=== PATIENT | female | born 1985 | race Hispanic/Latino ===

== ENCOUNTER 2017-11-16 18:29 | Emergency (ER) | payer BC, OTHER ==
--- NOTE | 2017-11-16 20:35 | RAD ---
EXAM: CHEST ONE VIEW 11/16/17 HISTORY: Chest pain. Fever, cough and congestion. COMPARISON: 09/21/16. FINDINGS: One view chest: Normal cardiac silhouette. Pulmonary vessels and hilum are normal. Costophrenic angles are clear. No mass. No consolidation. No pneumothorax or osseous abnormalities. IMPRESSION: No acute cardiopulmonary process. POS: H
[2017-11-16] MEDS ORDERED: Dexamethasone 10 MG/ML VIAL ONE (21:47)
[2017-11-16] MEDS ORDERED: Albuterol Sulfate 2.5 mg/0.5 ml Neb ONE (21:59)
--- NOTE | 2017-12-16 15:05 | EKG ---
Test Reason : CHEST PAIN/COUGH Blood Pressure : / mmHG Vent. Rate : 081 BPM Atrial Rate : 081 BPM P-R Int : 130 ms QRS Dur : 078 ms QT Int : 368 ms P-R-T Axes : -13 042 023 degrees QTc Int : 427 ms Normal sinus rhythm Normal ECG No ST elevation/LA Confirmed by SANAZ PETERSON MD ([id number]), supervising editor news reel TOMMY ASHTON ([id number]) on 12/16/2017 3:05:25 PM Referred By: Confirmed By:SANAZ PETERSON MD
== END 2017-11-16 22:40 | disposition home or self-care (01) ==
LOC: ERS 18:29
DX: J11.1 Influenza due to unidentified influenza virus with other respiratory manifestations (principal); J45.901 Unspecified asthma with (acute) exacerbation; E11.9 Type 2 diabetes mellitus without complications; E78.5 Hyperlipidemia, unspecified
CPT/HCPCS: 71045; 93005; 94640; 96372; J1100; J7611; J7620

== ENCOUNTER 2018-01-05 20:07 | Emergency (ER) | payer BC ==
[2018-01-05] MEDS ORDERED: Ibuprofen 200 MG TAB ONE (21:30)
== END 2018-01-05 21:40 | disposition home or self-care (01) ==
LOC: ERS 20:07
DX: H66.92 Otitis media, unspecified, left ear (principal); J01.90 Acute sinusitis, unspecified; E11.9 Type 2 diabetes mellitus without complications; E78.5 Hyperlipidemia, unspecified; Z79.4 Long term (current) use of insulin; Z79.899 Other long term (current) drug therapy
CPT/HCPCS: 99282

== ENCOUNTER 2019-01-11 12:59 | Outpatient (CLI) | payer BC, OTHER | END 2019-01-11 13:00 | disposition home or self-care (01) | LOC: EKG 12:59 | PROVIDERS: ATTEND Obstetrics & Gynecology | DX: Z00.00 Encounter for general adult medical examination without abnormal findings (principal) | CPT/HCPCS: 93005; 93010 ==

== ENCOUNTER 2019-01-30 14:16 | Day surgery (SDC) | payer BC, OTHER ==
[2019-01-30 14:56] VITALS: BMI 37.2
[2019-01-30 15:09] LABS: #Eosinphils 0.1 thou/uL (0.0-0.7); #Lymphocytes 2.3 thou/uL (1.20-3.40); #Monocytes 0.6 thou/uL (0.11-0.59); #Neutrophils 5.3 thou/uL (1.40-6.50); %Basophils 0.2 % (0.0-1.0); %Eosinophils 1.8 % (0.0-10.0); %Monocytes 7.6 % (0.0-10.0); %Neutrophils 63.5 % (42.0-75.0); Hemoglobin 12.4 g/dL (12.0-16.0); Mean Corpuscular HGB CONC 35.6 g/dL (32.0-36.0); Mean Corpuscular Hemoglobin 33.9 pg (27.0-31.0); Mean Corpuscular Volume 95.1 fL (78.0-98.0); Mean Platelet Volume 7.1 fL (7.4-10.4); Platelet Count 155 thou/uL (130-400); RBC Distribution Width 11.9 % (11.5-14.5); Red Blood Cell (RBC) Count 3.67 mill/uL (4.20-5.40); White Blood Cell (WBC) Count 8.4 thou/uL (4.8-10.8)
[2019-01-30 15:12] LABS: Bilirubin Negative (Negative); Blood, Urine Trace (Negative); Clarity CLEAR (Clear); Glucose, Urine (Dipstick) 250 mg/dL (Negative); Leukocyte Negative (Negative); Nitrite Negative (Negative); Protein, Urine (Dipstick) Negative (Neg-Trace); Specific Gravity, Urine 1.016 (1.002-1.036)
[2019-01-30 15:13] LABS: Bacteria/HPF None Seen HPF (None Seen); Hyaline Casts/LPF 4-6 HYALINE CAST LPF (0-3 Hyaline); Pathc Cast-AUWi Flag 1.22 (0-2.49); Squamous Epithelial 0-3 HPF (0-3); WBC/HPF None Seen HPF (0-3)
[2019-01-30 15:31] LABS: ALT (SGPT) 9 U/L (8-55); AST (SGOT) 10 U/L (5-34); Albumin 3.2 g/dL (3.5-5.0); Alkaline Phosphatase 42 U/L (40-150); Anion Gap 11 mmol/L (10-20); BUN (Urea Nitrogen) 8 mg/dL (7.0-18.7); Bilirubin, Total 0.2 mg/dL (0.2-1.2); Calc. Creatinine Clearance 197 mL/min (70-130); Calcium 9.1 mg/dL (7.8-10.44); Carbon Dioxide 22 mmol/L (22-29); Chloride 105 mmol/L (98-107); Estimated GFR-MDRD Greater than 90; Globulin 3.3 g/dL (2.4-3.5); Glucose 161 mg/dL (70-105); Potassium 4.1 mmol/L (3.5-5.1); Protein, Total 6.5 g/dL (6.0-8.3); Sodium 134 mmol/L (136-145)
--- NOTE | 2019-01-30 23:08 | PRG ---
DATE OF SERVICE: 01/30/[address] Cecilio Reza. CHIEF COMPLAINT: Pelvic and back pain and tightness. HISTORY OF PRESENT ILLNESS: Patient is a 33-year-old G4, P3, female with an intrauterine at 24 weeks gestation and a past medical history significant for diabetes and asthma. Patient reports that she has been experiencing over this last week pain and tightness in her left lower quadrant and back. After some discussion, patient reports that these symptoms are sharp in her lower abdomen and are exacerbated with her work and activity. 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 Patient also reports that she has worsening symptoms when the baby is actively moving. Patient reports she has had some nausea with vomiting intermittently and reports she last throw up this morning. She reports dysuria with frequency. Also, reports a change in her discharge as being whitish and yellow with a slight change in smell. Patient has a history of constipation and headaches with this . She does report good movement. Patient reports that her diabetes is in better control now and admits that she had poorly-controlled diabetes early in this . Patient denies fever, hematochezia, hematuria, falls, or trauma. She denies fever. Reports fatigue. Denies vision changes, ear pain, palpitations, chest pain, leg swelling or leg pain, or coughing up blood. She does report some shortness of breath with this and uses her albuterol inhaler as needed. She denies hematuria or dyspareunia. Again, reports burning with urination and back pain. Patient does report some intolerance to cold. She denies any rashes or itching. PAST MEDICAL HISTORY: Type 2 diabetes, migraine, dyslipidemia, and asthma. PAST SURGICAL HISTORY: Cholecystectomy and three prior C-sections. MEDICATION: She is on Lantus 32 units twice a day and NovoLog 16 units before meals, albuterol p.r.n. ALLERGIES: SUMATRIPTAN AND FLUCONAZOLE. SOCIAL HISTORY: Denies drug, alcohol, or tobacco use and again works in senior care services at [employer]. OB LABS: Unavailable at the time of dictation. REVIEW OF SYSTEMS: Per HPI. PHYSICAL EXAMINATION: VITAL SIGNS: Blood pressure is 121/71, heart rate of 90, respiratory rate of 18, and temperature 98.2. GENERAL: She appears to be in no acute distress. She is alert, oriented, cooperative, and pleasant to interact with. HEAD: Normocephalic and atraumatic. LUNGS: Clear to auscultation bilaterally. HEART: Has regular rate and rhythm. ABDOMEN: Soft, but has tenderness along the left lateral side with deviation of the uterus to the right. She also has some tenderness with palpation suprapubically and infraumbilically. She also has paravertebral tenderness along the left side, really no CVA tenderness and has positive SI joint tenderness to palpation on the left side. CERVICAL EXAM: Cervix is closed. DIAGNOSTIC DATA: heart tracing shows the fetus baseline in the 140s with moderate long-term variability. LABORATORY DATA: White count 8.4, hemoglobin 12.4, hematocrit 34.9, and platelets of 155,000. Sodium 134, potassium 4.1, BUN of 8, creatinine of 0.6, glucose of 161, calcium of 9.1, AST of 10, and ALT of 9. Beta hydroxybutyrate 0.09. Urine is clear with a pH of 6, specific gravity 1.016, negative protein, positive for glucose, negative for ketones, trace for blood, and negative for leukocyte esterase, white blood cells, squamous cells, or bacteria. VP3 positive for Gardnerella, negative for Trichomonas or Bina. ASSESSMENT AND PLAN: Patient is a 33-year-old G4, P3 female with an intrauterine at 24 weeks, suffering from musculoskeletal pains and ligamentous pains likely associated with her work. Patient is working full-time in senior care services at [employer]. We did discuss the likely connection between her symptoms and her work. I have asked Ms. Jerome as to refrain from work for the next several days to give her chance of time to heal and to discuss with her employers about activities that part of her work that she may have more difficulty doing with her . Fetus is overall reassuring for gestational age. There is no evidence of diabetic ketoacidosis or urinary tract infection or pyelonephritis or labor. Patient does have a positive VP3 for bacterial vaginosis, which came back after she left. I have attempted to call the patient to communicate the results, but I have been unsuccessful. Prior to discharge, the patient was given instructions to call the Labor and Delivery in a couple hours from time of discharge for lab results. Job ID: [id number]
== END 2019-01-30 16:27 | disposition home or self-care (01) ==
LOC: L&D/OP 14:16
PROVIDERS: ATTEND Obstetrics & Gynecology
DX: O99.89 Other specified diseases and conditions complicating pregnancy, childbirth and the puerperium (principal); M79.18 Myalgia, other site; O24.112 Pre-existing type 2 diabetes mellitus, in pregnancy, second trimester; E11.9 Type 2 diabetes mellitus without complications; Z3A.24 24 weeks gestation of pregnancy; O99.512 Diseases of the respiratory system complicating pregnancy, second trimester; J45.909 Unspecified asthma, uncomplicated; G43.909 Migraine, unspecified, not intractable, without status migrainosus; E78.5 Hyperlipidemia, unspecified; O34.219 Maternal care for unspecified type scar from previous cesarean delivery; Z90.49 Acquired absence of other specified parts of digestive tract; Z88.8 Allergy status to other drugs, medicaments and biological substances; Z79.4 Long term (current) use of insulin; Z79.899 Other long term (current) drug therapy
CPT/HCPCS: 36415; 51701; 80053; 81001; 82010; 85025; 87480; 87510; 87660; 99284

== ENCOUNTER 2019-03-04 14:58 | Day surgery (SDC) | payer BC, OTHER ==
[2019-03-04 16:43] LABS: Bilirubin Negative (Negative); Blood, Urine Trace (Negative); Clarity CLEAR (Clear); Glucose, Urine (Dipstick) 250 mg/dL (Negative); Leukocyte Negative (Negative); Nitrite Negative (Negative); Protein, Urine (Dipstick) 30 mg/dL (Neg-Trace); Specific Gravity, Urine 1.038 (1.002-1.036); pH, Urine 5.5 (5.0-9.0)
[2019-03-04 16:45] LABS: Bacteria/HPF None Seen HPF (None Seen); Hyaline Casts/LPF 7-10 HYALINE CAST LPF (0-3 Hyaline); RBC/HPF 0-3 HPF (0-3); Squamous Epithelial 0-3 HPF (0-3); WBC/HPF 0-3 HPF (0-3)
[2019-03-04 16:51] LABS: Amphetamine Not Detected (NotDetected); Barbiturates Screen Not Detected (NotDetected); Benzodiazepine Screen Not Detected (NotDetected); Cocaine Metabolite Screen Not Detected (NotDetected); Medtox Control Line Valid? VALID (VALID); Medtox Reader # READER 1; Methadone Not Detected (NotDetected); Methamphetamine Not Detected (NotDetected); Opiate Screen Not Detected (NotDetected); Oxycodone Screen Not Detected (NotDetected); Phencyclidine (PCP) Not Detected (NotDetected); THC/Cannabinoid Screen Not Detected (NotDetected); Tricyclic Screen Not Detected (NotDetected)
[2019-03-04 16:52] LABS: Urine Culture Reflex No No
[2019-03-04 17:02] VITALS: BP 132/71; TEMP 98.8; BMI 32.3
[2019-03-04 17:25] LABS: Creatinine, Urine 191.6 mg/dL (47-110)
[2019-03-04 17:35] LABS: #Eosinphils 0.2 thou/uL (0.0-0.7); #Lymphocytes 1.9 thou/uL (1.20-3.40); #Monocytes 0.8 thou/uL (0.11-0.59); #Neutrophils 5.5 thou/uL (1.40-6.50); %Basophils 0.4 % (0.0-1.0); %Eosinophils 2.3 % (0.0-10.0); %Lymphocytes 22.7 % (21.0-51.0); %Monocytes 9.1 % (0.0-10.0); %Neutrophils 65.5 % (42.0-75.0); Hemoglobin 12.1 g/dL (12.0-16.0); Mean Corpuscular HGB CONC 35.7 g/dL (32.0-36.0); Mean Corpuscular Hemoglobin 34.4 pg (27.0-31.0); Mean Corpuscular Volume 96.4 fL (78.0-98.0); Mean Platelet Volume 7.5 fL (7.4-10.4); Platelet Count 137 thou/uL (130-400); RBC Distribution Width 11.8 % (11.5-14.5); White Blood Cell (WBC) Count 8.3 thou/uL (4.8-10.8)
[2019-03-04 17:59] LABS: ALT (SGPT) 7 U/L (8-55); AST (SGOT) 10 U/L (5-34); Alkaline Phosphatase 55 U/L (40-150); Anion Gap 11 mmol/L (10-20); BUN (Urea Nitrogen) 11 mg/dL (7.0-18.7); Bilirubin, Total 0.2 mg/dL (0.2-1.2); Calc. Creatinine Clearance 181 mL/min (70-130); Calcium 8.9 mg/dL (7.8-10.44); Carbon Dioxide 23 mmol/L (22-29); Chloride 107 mmol/L (98-107); Estimated GFR-MDRD Greater than 90; Globulin 3.3 g/dL (2.4-3.5); Glucose 123 mg/dL (70-105); Protein, Total 6.3 g/dL (6.0-8.3); Sodium 137 mmol/L (136-145)
--- NOTE | 2019-03-04 19:40 | PRG ---
DATE OF SERVICE: 03/04/2019 TIME OF SERVICE: 1820 hours. PRESENTING COMPLAINT: Headaches, 28 to 29 weeks' gestation with insulin-dependent diabetes HISTORY OF PRESENT ILLNESS: Ms. Jerome is well known to myself. She is a 33-year-old, 4, para 3, x3 at 28 to 29 weeks who had pre-existing diabetes prior to . She requires both oral medications and insulin and seeing Dr. Rachid Bahkta at [facility]. She presented to the office with some complaints of headache and had one 150/80 in the office. She was referred over for further evaluation. ORACLE SPECIALIST HISTORY: As noted. The patient does not desire risk reducing salpingectomy. The patient has a history of herpes, blood type A positive, antibody negative, Pap negative, rubella immune, VDRL nonreactive. Hepatitis B, GC, chlamydia negative. Hemoglobin A1c has been 6 to 7 range. The patient had mild proteinuria upon initial presentation in early . She had initial UA that was positive for alcohol. She had negative genetic testing. PAST MEDICAL HISTORY: Herpes, diabetes poorly controlled outside of . PAST SURGICAL HISTORY: Gallbladder, C-sections. ALLERGIES: DENIES. MEDICATIONS: 1. Albuterol. 2. Flovent. 3. Lantus. 4. Metformin. 5. NovoLog. 6. Protonix. 7. Valacyclovir. SOCIAL HISTORY: Denies tobacco, alcohol, or IV drug abuse, although the patient did have positive alcohol in urine in early . FAMILY HISTORY: Noncontributory. REVIEW OF SYSTEMS: Noncontributory. PHYSICAL EXAMINATION: GENERAL: female, resting comfortably. VITAL SIGNS: Initial blood pressure 130/82, serial blood pressures ranged between one-teens to 130 over 80 to 86 diastolic during hospital stay, temperature 98.4, respirations 18, pulse 95. HEENT: Within normal limits. LUNGS: Clear to auscultation bilaterally. HEART: Regular rate and rhythm. No CVA tenderness noted. ABDOMEN: Soft and nontender with a fundal height of 29 cm. FHTs 140s. Vulva without lesions. Vaginal exam deferred. EXTREMITIES: No clubbing, cyanosis, or edema. 1+ DTRs. Prolonged monitoring. NST was carried out which show reactive category 1 heart rate tracing without contractions without evidence of distress. LABORATORY DATA: Included a normal CBC and comprehensive metabolic panel with blood sugar of 127. Protein to creatinine ratio on spot was 0.4, however, the patient is noted to have pre-existing mild proteinuria prior to . A 24-hour urine was 254 mg in first trimester. IMPRESSION: No evidence of preeclampsia in a patient at high risk with insulin-dependent diabetes in pre-existing proteinuria on baby aspirin daily. PLAN: Discussed with the patient options. We will discharge patient home. She will check her blood pressure at home. Call for 150s/90s or greater. The patient will have office follow up with the patient tomorrow and repeat 24-hour urine. The patient is to keep scheduled followup with myself or [facility] with ER precautions. Job ID: [id number]
== END 2019-03-04 18:33 | disposition home health service (06) ==
LOC: L&D/OP 14:58
PROVIDERS: ATTEND Obstetrics & Gynecology
DX: O99.89 Other specified diseases and conditions complicating pregnancy, childbirth and the puerperium (principal); R51 Headache; O24.112 Pre-existing type 2 diabetes mellitus, in pregnancy, second trimester; E11.9 Type 2 diabetes mellitus without complications; Z79.4 Long term (current) use of insulin; Z79.899 Other long term (current) drug therapy
CPT/HCPCS: 36415; 36416; 80053; 80306; 81001; 82570; 84156; 85025; A4353

== ENCOUNTER 2019-03-12 10:32 | Day surgery (SDC) | payer BC, OTHER ==
[2019-03-12 11:26] VITALS: BMI 37.2
[2019-03-12 11:59] LABS: Hemoglobin 13.2 g/dL (12.0-16.0); Mean Corpuscular HGB CONC 34.5 g/dL (32.0-36.0); Mean Corpuscular Hemoglobin 32.9 pg (27.0-31.0); Mean Corpuscular Volume 95.4 fL (78.0-98.0); Mean Platelet Volume 7.7 fL (7.4-10.4); Platelet Count 177 thou/uL (130-400); RBC Distribution Width 11.7 % (11.5-14.5); Red Blood Cell (RBC) Count 4.02 mill/uL (4.20-5.40); White Blood Cell (WBC) Count 8.3 thou/uL (4.8-10.8)
[2019-03-12 12:01] LABS: Bilirubin Small (Negative); Blood, Urine Trace (Negative); Clarity CLEAR (Clear); Glucose, Urine (Dipstick) 100 mg/dL (Negative); Leukocyte Negative (Negative); Nitrite Negative (Negative); Protein, Urine (Dipstick) 30 mg/dL (Neg-Trace); Specific Gravity, Urine 1.025 (1.002-1.036)
[2019-03-12 12:12] LABS: Bacteria/HPF None Seen HPF (None Seen); Hyaline Casts/LPF 7-10 HYALINE CAST LPF (0-3 Hyaline); Pathc Cast-AUWi Flag 1.63 (0-2.49); WBC/HPF 0-3 HPF (0-3)
[2019-03-12 12:25] LABS: ALT (SGPT) 7 U/L (8-55); AST (SGOT) 8 U/L (5-34); Albumin 3.1 g/dL (3.5-5.0); Alkaline Phosphatase 60 U/L (40-150); Anion Gap 11 mmol/L (10-20); BUN (Urea Nitrogen) 9 mg/dL (7.0-18.7); Bilirubin, Total 0.3 mg/dL (0.2-1.2); Calc. Creatinine Clearance 204 mL/min (70-130); Calcium 8.8 mg/dL (7.8-10.44); Carbon Dioxide 23 mmol/L (22-29); Chloride 106 mmol/L (98-107); Estimated GFR-MDRD Greater than 90; Globulin 3.5 g/dL (2.4-3.5); Glucose 97 mg/dL (70-105); Potassium 4.3 mmol/L (3.5-5.1); Protein, Total 6.6 g/dL (6.0-8.3); Sodium 136 mmol/L (136-145)
[2019-03-12 12:26] LABS: RBC/HPF 0-3 HPF (0-3)
[2019-03-12 12:40] LABS: Creatinine, Urine 178.08 mg/dL (47-110)
[2019-03-12 14:21] LABS: Amphetamine Not Detected (NotDetected); Barbiturates Screen Not Detected (NotDetected); Benzodiazepine Screen Not Detected (NotDetected); Cocaine Metabolite Screen Not Detected (NotDetected); Medtox Reader # READER 4; Methadone Not Detected (NotDetected); Methamphetamine Not Detected (NotDetected); Opiate Screen Not Detected (NotDetected); Oxycodone Screen Not Detected (NotDetected); Phencyclidine (PCP) Not Detected (NotDetected); THC/Cannabinoid Screen Not Detected (NotDetected); Tricyclic Screen Not Detected (NotDetected)
[2019-03-12 14:22] LABS: Medtox Control Line Valid? VALID (VALID)
[2019-03-12 14:32] LABS: Reference Lab Name LABCORP
--- NOTE | 2019-03-13 01:55 | SS ---
DATE OF ADMISSION: 03/12/2019 DATE OF DISCHARGE: 03/12/2019 REGULAR PHYSICIAN: Cecilio Reza MD EVALUATING PHYSICIAN: Blade Latham MD CHIEF COMPLAINT: Elevated blood pressures with nausea at home. HISTORY OF PRESENT ILLNESS: Ms. Murdock is a 33-year-old, G4, P3, with an estimated date of confinement of 05/22/2019, who presents to Labor and Delivery complaining of elevated blood pressure at work. She states that it was 176/86. She also reports intermittent headache along with some nausea. Apparently, she has vomited once as well. She denies right upper quadrant pain. This patient is well known to Dr. Reza, and she has been followed for diabetes in his clinic. She had a 24-hour urine done on the , which returned showing 440 mg per 24 hours. PAST MEDICAL HISTORY: Includes herpes and diabetes mellitus. PAST SURGICAL HISTORY: Includes x3 and cholecystectomy. CURRENT MEDICATIONS: Include, 1. Albuterol. 2. Flovent. 3. Lantus insulin. 4. Metformin. 5. NovoLog. 6. Protonix. 7. Valacyclovir. ALLERGIES: SHE DENIES. SOCIAL HISTORY: She reportedly has had a positive ethanol testing early in . She denies drug use at present. FAMILY HISTORY: Unremarkable. REVIEW OF SYSTEMS: She denies decreased movement, vaginal bleeding, or leakage of fluid. PHYSICAL EXAMINATION: VITAL SIGNS: Initial blood pressure is 132/74. During our time of observation, her blood pressures have ranged 130s to 140s over 70s to 80s. GENERAL: She is in no acute distress. ABDOMEN: Soft, nontender, and gravid. PELVIS: Deferred. heart rate tracing is stable. There are no decelerations. No significant uterine contractions were seen. LABORATORY DATA: White count 8.3, hemoglobin and hematocrit are 13.2 and 38.3 respectively, and platelet count is 177,000. Total bilirubin 0.3. AST and ALT are 8 and 7 respectively. Urinalysis does show the presence of protein and urine protein to creatinine ratio returns at 0.303. ASSESSMENT: 1. 29 and 6/7th week intrauterine . 2. Diabetes mellitus. 3. No evidence of severe -induced hypertension at this time. PLAN: I have discussed the findings with Dr. Reza. Plan at this time is to dismiss her to home with precautions. He has asked that I do a urine drug screen as well as an ethanol prior to discharging her today. She voiced understanding of her instructions and was sent home in good condition. Job ID: [id number]
[2019-03-16 15:22] LABS: Ref Lab Test Ordered ETHANOL URINE
== END 2019-03-12 13:44 | disposition home or self-care (01) ==
LOC: L&D/OP 10:32
PROVIDERS: ATTEND Obstetrics & Gynecology
DX: O99.89 Other specified diseases and conditions complicating pregnancy, childbirth and the puerperium (principal); R03.0 Elevated blood-pressure reading, without diagnosis of hypertension; R51 Headache; O21.2 Late vomiting of pregnancy; O24.313 Unspecified pre-existing diabetes mellitus in pregnancy, third trimester; E11.9 Type 2 diabetes mellitus without complications; Z3A.29 29 weeks gestation of pregnancy; Z79.4 Long term (current) use of insulin; Z79.51 Long term (current) use of inhaled steroids; Z79.899 Other long term (current) drug therapy; Z88.8 Allergy status to other drugs, medicaments and biological substances
CPT/HCPCS: 36415; 80053; 80306; 81003; 81015; 82570; 84156; 85027; 99284

== ENCOUNTER 2019-03-14 16:12 | Observation (INO) | payer BC, OTHER ==
[2019-03-14 16:55] VITALS: BMI 37.2
[2019-03-14] MEDS ORDERED: Ondansetron PF 4 MG/2 ML Vial IVP PRN (17:07)
[2019-03-14] MEDS ORDERED: Promethazine HCl 25 MG/ML VIAL IM PRN (17:07)
[2019-03-14] MEDS ORDERED: Dextrose 5% in Water 1,000 ML IV PRN (17:12)
[2019-03-14] MEDS ORDERED: Dextrose 50% Abboject 50 ML SYRINGE SLOW IVP PRN (17:12)
[2019-03-14 18:07] LABS: #Eosinphils 0.1 thou/uL (0.0-0.7); #Lymphocytes 1.9 thou/uL (1.20-3.40); #Monocytes 0.7 thou/uL (0.11-0.59); #Neutrophils 4.5 thou/uL (1.40-6.50); %Basophils 0.7 % (0.0-1.0); %Eosinophils 1.9 % (0.0-10.0); %Lymphocytes 25.9 % (21.0-51.0); %Monocytes 9.4 % (0.0-10.0); %Neutrophils 62.2 % (42.0-75.0); Hemoglobin 12.9 g/dL (12.0-16.0); Mean Corpuscular HGB CONC 35.7 g/dL (32.0-36.0); Mean Corpuscular Hemoglobin 34.2 pg (27.0-31.0); Mean Corpuscular Volume 95.8 fL (78.0-98.0); Mean Platelet Volume 8.8 fL (7.4-10.4); Platelet Count 163 thou/uL (130-400); RBC Distribution Width 11.5 % (11.5-14.5); Red Blood Cell (RBC) Count 3.76 mill/uL (4.20-5.40); White Blood Cell (WBC) Count 7.2 thou/uL (4.8-10.8)
[2019-03-14] MEDS: HumaLOG 300 UNITS/3 ML VIAL SC PRN (18:14)
[2019-03-14] MEDS ORDERED: Fluticasone Propionate Nasal Spray 16 gm Bottle NASAL PRN (18:39)
[2019-03-14] MEDS ORDERED: PROVENTIL INHALER 6.7 G (200 INHALATIONS) INH PRN (18:40)
[2019-03-14 18:42] LABS: ALT (SGPT) 8 U/L (8-55); AST (SGOT) 10 U/L (5-34); Alkaline Phosphatase 58 U/L (40-150); Anion Gap 14 mmol/L (10-20); BUN (Urea Nitrogen) 8 mg/dL (7.0-18.7); Bilirubin, Total 0.3 mg/dL (0.2-1.2); Calc. Creatinine Clearance 200 mL/min (70-130); Calcium 8.7 mg/dL (7.8-10.44); Carbon Dioxide 19 mmol/L (22-29); Chloride 105 mmol/L (98-107); Estimated GFR-MDRD Greater than 90; Globulin 3.5 g/dL (2.4-3.5); Glucose 214 mg/dL (70-105); Potassium 3.7 mmol/L (3.5-5.1); Protein, Total 6.5 g/dL (6.0-8.3); Sodium 134 mmol/L (136-145)
[2019-03-14] MEDS ORDERED: Calcium Carbonate 500 MG ChewTAB PO PRN (18:42)
[2019-03-14] MEDS ORDERED: metFORMIN 500 MG TAB PO SCH (18:45)
--- NOTE | 2019-03-14 20:07 | PDOC.FPRHP ---
- History of Present Illness Chief Complaint: HTN History of Present Illness: CONSULT NOTE 33 yo @ 30.1 wks is admitted for hypertension noted earlier today in clinic with Dr. Reza. Consulted by laborist for diabetes management. In first , patient diagnosed with gestational diabetes which resolved. Developed gestational diabetes at beginning of second and has had chronic diabetes since. Checks sugar 5-6x/day. Says most recent A1c was 6.7. Fasting BG 90-100s. Says BG never above 150. However she did have snickers and milk prior to coming to hospital, did not take insulin, and BG was 200s. - Allergies/Adverse Reactions Allergies Allergy/AdvReac Type Severity Reaction Status Date / Time sitagliptin [From Januvia] Allergy Severe DIFFICULTY Verified 03/14/19 16:51 BREATHING sumatriptan succinate Allergy Severe Verified 03/14/19 16:51 [From Imitrex] fluconazole [From Diflucan] Allergy Short of Verified 03/14/19 16:52 Breath - Home Medications Medication Instructions Recorded Confirmed Type No.137/Iron/Folic Acd 1 tablet PO HS 08/13/14 03/12/19 History [ Vitamin Tablet] Albuterol Sulfate [Proair HFA] 1 puff INH PRN PRN 09/20/16 03/12/19 History Humulin R 14 unit SC TID-WM 01/17/17 03/12/19 History Acyclovir 1,000 mg PO DAILY 03/08/17 03/12/19 History Insulin Glargine,Hum.Rec.Anlog 38 unit SQ BID 03/08/17 03/12/19 History [Lantus Solostar] metFORMIN HCl 500 mg PO BID 03/08/17 03/12/19 History Fluticasone Propionate [Flovent 110 mcg INH BID 03/12/19 03/12/19 History HFA 110 mcg] - History PMHx: DM, asthma, HLD (taken off med), genital herpes (no outbreak in >4 yrs) PSHx: Cholecystectomy, x3, ear tubes FHx: DM-both sides. Mother-HTN, HLD. Father-lung CA Social: Denies tobacco, alcohol, drug use. Hinduism. - Review of Systems General: denies: weight/appetite/sleep changes Eyes: reports: vision changes (scotoma) ENT: reports: other (headache). denies: nasal congestion Respiratory: denies: cough, shortness of breath Cardiovascular: denies: chest pain, palpitation Gastrointestinal: reports: nausea, constipation, other (heartburn) Skin: denies: rashes Neurological: denies: weakness - Vital signs BP: 136/74 HR: 84 - Physical Exam Constitutional: NAD, awake, alert and oriented HEENT: normocephalic and atraumatic, grossly normal vision, grossly normal hearing Heart: RRR, normal S1/S2, no murmurs/rubs/gallops, no edema Lungs: CTAB, no respiratory distress, no wheezing Abdomen: soft, non-tender, bowel sounds present, other (gravid) Musculoskeletal: normal structure, normal tone Neurological: no focal deficit Skin: no rash/lesions, good turgor Heme/Lymphatic: no unusual bruising or bleeding Psychiatric: normal mood and affect FMR H&P: Results - Labs Result Diagrams: 03/14/19 17:58 03/14/19 17:58 Lab results: WBC 7.2 thou/uL (4.8-10.8) 03/14/19 17:58 Hgb 12.9 g/dL (12.0-16.0) 03/14/19 17:58 Hct 36.0 % (36.0-47.0) 03/14/19 17:58 MCV 95.8 fL (78.0-98.0) 03/14/19 17:58 Plt Count 163 thou/uL (130-400) 03/14/19 17:58 Neutrophils % 62.2 % (42.0-75.0) 03/14/19 17:58 Sodium 134 mmol/L (136-145) L 03/14/19 17:58 Potassium 3.7 mmol/L (3.5-5.1) 03/14/19 17:58 Chloride 105 mmol/L (98-107) 03/14/19 17:58 Carbon Dioxide 19 mmol/L (22-29) L 03/14/19 17:58 BUN 8 mg/dL (7.0-18.7) 03/14/19 17:58 Creatinine 0.59 mg/dL (0.6-1.1) L 03/14/19 17:58 Glucose 214 mg/dL (70-105) H 03/14/19 17:58 Calcium 8.7 mg/dL (7.8-10.44) 03/14/19 17:58 Total Bilirubin 0.3 mg/dL (0.2-1.2) 03/14/19 17:58 AST 10 U/L (5-34) 03/14/19 17:58 ALT 8 U/L (8-55) 03/14/19 17:58 Alkaline Phosphatase 58 U/L (40-150) 03/14/19 17:58 Serum Total Protein 6.5 g/dL (6.0-8.3) 03/14/19 17:58 Albumin 3.0 g/dL (3.5-5.0) L 03/14/19 17:58 FMR H&P: A/P - Problem List (1) Insulin dependent diabetes mellitus Current Visit: Yes Status: Acute Code(s): E11.9 - TYPE 2 DIABETES MELLITUS WITHOUT COMPLICATIONS; Z79.4 - JAILER/TRAINING OFFICER (CURRENT) USE OF INSULIN (2) Asthma Current Visit: Yes Status: Acute Code(s): J45.909 - UNSPECIFIED ASTHMA, UNCOMPLICATED (3) HLD (hyperlipidemia) Current Visit: Yes Status: Acute Code(s): E78.5 - HYPERLIPIDEMIA, UNSPECIFIED (4) Obesity (BMI 30.0-34.9) Current Visit: No Status: Chronic Code(s): E66.9 - OBESITY, UNSPECIFIED - Plan Pregestational Diabetes, White class B - continue home insulin regimen of Lantus 32 U in am, 38 U at night. Mealtime 14 units novolog with SSI. - continue home metformin 500 BID - A1c pending - BG goals: fasting/preprandial <95, 1 hr PP <140, 2 hr PP <120 - accuchecks qACHS, will adjust insulin regimen and frequency of BG checks as necessary - when intrapartum patient will require q1-2 hr BG checks and insulin management , possibly requiring insulin infusion HTN - workup and management per laborist Asthma - continue home flovent BID, with albuterol prn (has not required in past week) GERD - Tums prn, patient takes at home Diet: CC Case discussed with Dr. Cardona FMR H&P: Upper Level - Plan Date/Time: 03/14/192006 I, [], have evaluated this patient and agree with findings/plan as outlined by commander internal affairs resident. Pertinent changes/additions are listed here. Addendum - Attending - Attending Attestation Date/Time: 03/15/19 1122 I personally evaluated the patient and discussed the management with Dr. Bryant yesterday. I agree with the History, Examination, Assessment and Plan documented above with any addition or exceptions noted below.
--- NOTE | 2019-03-14 20:43 | ULT ---
ULTRASOUND OBSTETRICAL COMPLETE: DATE: 03/14/2019 HISTORY: 33-year-old female in third trimester of . Evaluate presentation, MASSIEL, and estimated f etal weight. FINDINGS: number: briceño lie: Transverse, with head to maternal left. Maternal cervix: Obscured. Not visualized. Placenta: Anterior. No previa. Amniotic fluid volume: MASSIEL = 14.5cm heart rate: 140 bpm anatomy not evaluated biometry: Biparietal diameter (BPD): 7.8 cm 31 w 2 d Head circumference (HC): 28.0 cm 30 w 4 d Abdominal circumference (AC): 27.3 cm 31 w 3 d Femur length (FL): 5.9 cm 30 w 4 d Average ultrasound age (AUA): 31 w 0 d Estimated date of delivery (BRAN): 05/16/2019 Estimated weight (EFW): 1690 g +/- 250 g IMPRESSION: 1) Live 3rd trimester intrauterine gestation. 2) Estimated gestational age of 31 weeks, 0 days 3) transverse, with head to maternal left lie. 4) MASSIEL 14.5 cm
--- NOTE | 2019-03-14 20:44 | PDOC.EVN ---
Event Note - Event Note Event Note: BPs reassuring. FHTs are stable. Labs on admit: WBC= 7.2, H/H= 12.9/36, plts= 163K. Ii=329, K=3.7, gqenevz=263, Cr= .59, T. bili= 0.3, AST/ALT=10/8. 24 hour urine for TP in progress. FP input re: glucose control greatly appreciated. USG shows biometry c/w dates, MASSIEL=14.3, ant. placenta, transverse lie.
[2019-03-14] MEDS ORDERED: PRE FILLED SC SCH (21:00)
[2019-03-14] MEDS ORDERED: INSULIN GLARGINE SC SCH (21:00)
[2019-03-14] MEDS: HumaLOG 300 UNITS/3 ML VIAL SC SCH (21:00)
--- NOTE | 2019-03-14 23:21 | HP ---
REGULAR PHYSICIAN: Cecilio Reza MD. ADMITTING PHYSICIAN: Blade Latham MD. CHIEF COMPLAINT: Elevated blood pressures in clinic. HISTORY OF PRESENT ILLNESS: Ms. Jerome is a 33-year-old G4, P3-0-0-3 with an estimated date of confinement of 05/22/2019, who was seen in the office by Dr. Reza today and had elevated blood pressures, systolic 150s to 160s there. She denies headache or blurry vision. Of note is the fact that she had a 24-hour urine approximately one week ago that demonstrated 400 mg of urinary protein in 24 hours. At the present time, she denies loss of fluid, vaginal bleeding, or decreased movement. Her care has been with Dr. Reza and has been complicated by diabetes. PAST OBSTETRICAL HISTORY: Includes x3. PAST MEDICAL HISTORY: Insulin-requiring diabetes. PAST SURGICAL HISTORY: Includes three C sections, cholecystectomy, and tonsillectomy. CURRENT MEDICATIONS: 1. Metformin 500 mg b.i.d. 2. Lantus insulin 32 units q.a.m. with 38 units at bedtime. 3. She also takes NovoLog 14 units before each meal. ALLERGIES: SHE REPORTS TO IMITREX, JANUVIA, AND DIFLUCAN, ALL OF WHICH SHE SAYS MAKES HER FLUSHED AND SHORT OF BREATH. SOCIAL HISTORY: Denies tobacco, alcohol, or drug use. FAMILY HISTORY: Unremarkable. REVIEW OF SYSTEMS: She denies nausea, vomiting, fever, chills, ruptured membranes, vaginal bleeding, or decreased movement. PHYSICAL EXAMINATION: VITAL SIGNS: Blood pressure is 139/73, pulse is 88. She is afebrile. GENERAL: She is pleasant, in no acute distress. CHEST: Clear to auscultation. CARDIOVASCULAR: Regular rate and rhythm. ABDOMEN: Soft, nontender, and gravid. PELVIC: Deferred. heart rate tracing is stable and reassuring. There are no uterine contractions. ASSESSMENT: 1. 30 and 1 week intrauterine . 2. Insulin-requiring diabetes. 3. Elevated blood pressures in clinic, rule out superimposed preeclampsia. PLAN: The patient will be admitted for observation of her blood pressure, glycemic control, and to repeat labs and begin another 24-hour urine. Dr. Reza has asked the hospitalist service to manage. I have spoken with Dr. Cardona with family Practice to assist in glycemic control. She will be watched carefully. Job ID: [id number] [email or web address]
[2019-03-15] MEDS: Acetaminophen 500 MG TAB PO PRN ×3 (04:10→17:27)
[2019-03-15] MEDS: Mometasone 100 MCG HFA INHALER INH SCH ×2 (08:05→19:17)
[2019-03-15 08:20] LABS: Hemoglobin A1c 6.7 % (4.0-6.0)
--- NOTE | 2019-03-15 08:40 | PDOC.OBAPN ---
R OB AP PN: Sub - Interval History Hospital Day: 2 Chief Complaint: Pt reports having headache at this time. Interval History: Pt denies any hypoglycemic episodes. Denies any fever or chills. R OB AP PN: Obj - Maternal Vital signs: BP: [124/69] HR: [85] RR: [16] Pox: [96]% on [RA] Wt: [95kg] R OB AP PN: Exam - Physical Exam General: NAD, awake, alert and oriented HEENT: normocephalic and atraumatic, grossly normal vision, grossly normal hearing Neck: supple Heart: RRR, normal S1/S2, no murmurs/rubs/gallops, pulses present, no edema General: CTAB, no respiratory distress, good air movement, no rales/rhonchi, no wheezing Abdomen: soft, gravid, non-tender, bowel sound present Musculoskeletal: pulses present, FROM in all four extremities Neurological: sensation to pain,touch and proprioception grossly normal Skin: no rash, capillary refill <2 seconds Psychiatric: intact recent and remote memory, normal mood and affect R OB AP PN: Data - Labs Lab results: Laboratory Results - last 24 hr 03/14/19 03/14/19 03/14/19 17:58 17:58 17:58 WBC 7.2 RBC 3.76 L Hgb 12.9 Hct 36.0 MCV 95.8 MCH 34.2 H MCHC 35.7 RDW 11.5 Plt Count 163 MPV 8.8 Neutrophils % 62.2 Lymphocytes % 25.9 Monocytes % 9.4 Eosinophils % 1.9 Basophils % 0.7 Neutrophils # 4.5 Lymphocytes # 1.9 Monocytes # 0.7 H Eosinophils # 0.1 Basophils # 0.0 Sodium 134 L Potassium 3.7 Chloride 105 Carbon Dioxide 19 L Anion Gap 14 BUN 8 Creatinine 0.59 L Estimated GFR (MDRD) Greater than 90 Glucose 214 H POC Glucose Hemoglobin A1c 6.7 H Uric Acid 3.0 Calcium 8.7 Total Bilirubin 0.3 AST 10 ALT 8 Alkaline Phosphatase 58 Serum Total Protein 6.5 Albumin 3.0 L Globulin 3.5 Albumin/Globulin Ratio 0.9 L Urine Protein 03/14/19 03/14/19 03/14/19 17:59 18:09 23:24 WBC RBC Hgb Hct MCV MCH MCHC RDW Plt Count MPV Neutrophils % Lymphocytes % Monocytes % Eosinophils % Basophils % Neutrophils # Lymphocytes # Monocytes # Eosinophils # Basophils # Sodium Potassium Chloride Carbon Dioxide Anion Gap BUN Creatinine Estimated GFR (MDRD) Glucose POC Glucose 206 H 87 Hemoglobin A1c Uric Acid Calcium Total Bilirubin AST ALT Alkaline Phosphatase Serum Total Protein Albumin Globulin Albumin/Globulin Ratio Urine Protein Trace 03/15/19 06:07 WBC RBC Hgb Hct MCV MCH MCHC RDW Plt Count MPV Neutrophils % Lymphocytes % Monocytes % Eosinophils % Basophils % Neutrophils # Lymphocytes # Monocytes # Eosinophils # Basophils # Sodium Potassium Chloride Carbon Dioxide Anion Gap BUN Creatinine Estimated GFR (MDRD) Glucose POC Glucose 142 H Hemoglobin A1c Uric Acid Calcium Total Bilirubin AST ALT Alkaline Phosphatase Serum Total Protein Albumin Globulin Albumin/Globulin Ratio Urine Protein FMR OB AP PN: A/P - Problem List (1) Diabetes type 2, uncontrolled Current Visit: No Status: Chronic Code(s): E11.65 - TYPE 2 DIABETES MELLITUS WITH HYPERGLYCEMIA (2) Current Visit: Yes Status: Acute Qualifiers: Weeks of gestation: 30 weeks Qualified Code(s): Z3A.30 - 30 weeks gestation of (3) Asthma Current Visit: Yes Status: Acute Code(s): J45.909 - UNSPECIFIED ASTHMA, UNCOMPLICATED Disposition: 33 yo @ 30.2 wks is admitted for hypertension and titration of blood sugar management. Pregestational Diabetes, White class B - continue home insulin regimen of Lantus 32 U in am, Will increase PM Lantus to 42 units as fasting BG was elevated. Mealtime 14 units novolog with SSI. Will adjust novolog dosing depending on 2 hr PP glucose checks today. - continue home metformin 500 BID - A1c 6.7 - BG goals: fasting/preprandial <95, 1 hr PP <140, 2 hr PP <120 - accuchecks fasting in the AM and 2 Hr PP. will adjust insulin regimen and frequency of BG checks as necessary - when intrapartum patient will require q1-2 hr BG checks and insulin management , possibly requiring insulin infusion HTN - workup and management per laborist -No abnormal labs. Still collecting 24 hr urine. Asthma -Denies any SOB at this time. - continue home flovent BID, with albuterol prn (has not required in past week) GERD - Tums prn, patient takes at home Discussion: Date/Time: 03/15/19 1856 This H&P was discussed with [] and [] who agree with the above documentation and plan. Addendum - Attending - Attending Attestation Date/Time: 03/15/19 1734 I personally evaluated the patient and discussed the management with Dr. Waterman. I agree with the History, Examination, Assessment and Plan documented above with any addition or exceptions noted below.
[2019-03-15] MEDS ORDERED: INSULIN GLARGINE SC SCH (09:00)
[2019-03-15] MEDS ORDERED: PRE FILLED SC SCH (09:00)
[2019-03-15] MEDS: metFORMIN 500 MG TAB PO SCH ×2 (09:29→18:30)
[2019-03-15] MEDS: Aspirin 81 mg Enteric Coated Tablet PO SCH (09:29)
[2019-03-15] MEDS: HumaLOG 300 UNITS/3 ML VIAL SC SCH ×3 (09:30→18:30)
[2019-03-15] MEDS: HumaLOG 300 UNITS/3 ML VIAL SC PRN (11:00)
[2019-03-15 20:50] LABS: Creatinine, Urine 53.58 mg/dL (47-110)
[2019-03-15] MEDS ORDERED: Insulin Glargine 42 UNITS in Pre-Filled Syringe 1 EACH SC SCH (21:00)
[2019-03-15] MEDS ORDERED: Insulin Glargine 46 UNITS in Pre-Filled Syringe 1 EACH SC SCH (21:00)
[2019-03-15] MEDS ORDERED: Bisacodyl 5 MG TAB PO PRN (21:53)
[2019-03-15 22:10] LABS: Urine Total Volume 2525 mL (600-1600)
[2019-03-15 22:33] LABS: Protein - 24 Hr 480 mg/24 hr (Less than 300); Protein, Urine 19 mg/dL (1-14)
--- NOTE | 2019-03-16 05:28 | PDOC.FM ---
- Objective MAR Reviewed: Yes Vital Signs & Weight: Vital Signs (12 hours) Temp Pulse Resp BP Pulse Ox 03/15/19 19:17 95 16 100 03/15/19 18:38 98.3 F 98 18 128/74 Weight Weight 95.254 kg I&O: 03/14/19 03/15/19 03/16/19 06:59 06:59 06:59 Intake Total 10 Balance 10 Result Diagrams: 03/14/19 17:58 03/14/19 17:58
--- NOTE | 2019-03-16 05:31 | PDOC.OBAPN ---
FMR OB AP PN: Sub - Interval History Hospital Day: 3 Chief Complaint: Insulin titration FMR OB AP PN: Obj - Maternal Vital signs: BP: [128/74] HR: [95] RR: [16] Tmax: 98.3[] Pox: [100]% on [ra] Wt: [95kg] - Urine output I&O: 03/14/19 03/15/19 03/16/19 06:59 06:59 06:59 Intake Total 10 Balance 10 FMR OB AP PN: Exam - Physical Exam General: NAD HEENT: normocephalic and atraumatic, no scleral icterus Neck: supple Heart: RRR, normal S1/S2, no murmurs/rubs/gallops General: CTAB, no respiratory distress Abdomen: soft, non-tender, no masses Skin: no rash Psychiatric: intact recent and remote memory, good judgement and insight, normal mood and affect FMR OB AP PN: Data - Labs Lab results: Laboratory Results - last 24 hr 03/14/19 03/14/19 03/14/19 17:58 17:59 23:24 POC Glucose 87 Hemoglobin A1c 6.7 H Urine Protein U Random Total Protein 16 H Ur Collection Duration Urine Total Volume Urine Creatinine 53.58 U Tot Protein 24h, Calc 03/15/19 03/15/19 03/15/19 06:07 10:59 12:44 POC Glucose 142 H 184 H 144 H Hemoglobin A1c Urine Protein U Random Total Protein Ur Collection Duration Urine Total Volume Urine Creatinine U Tot Protein 24h, Calc 03/15/19 03/15/19 03/15/19 15:47 18:36 21:25 POC Glucose 111 H 118 H 97 Hemoglobin A1c Urine Protein U Random Total Protein Ur Collection Duration Urine Total Volume Urine Creatinine U Tot Protein 24h, Calc 03/15/19 22:06 POC Glucose Hemoglobin A1c Urine Protein 19 H U Random Total Protein Ur Collection Duration 24 Urine Total Volume 2525 H Urine Creatinine U Tot Protein 24h, Calc 480 FMR OB AP PN: A/P - Problem List (1) Pregestational diabetes mellitus, modified White class B Current Visit: Yes Status: Acute Code(s): O24.319 - UNSP PRE-EXISTING DIABETES IN , UNSP TRIMESTER Assessment and Plan: Last 3 glucose check appropriate. 2hr postprandial under 120. Last afternoon, had increased insulin by approximately 15% Plan, if glucose fasting less then or near goal, will discharge. (2) GERD (gastroesophageal reflux disease) Current Visit: Yes Status: Acute Code(s): K21.9 - GASTRO-ESOPHAGEAL REFLUX DISEASE WITHOUT ESOPHAGITIS Assessment and Plan: Takes tums PRN for heart burn and has no current issue with it Continue current manument (3) Asthma Current Visit: Yes Status: Acute Code(s): J45.909 - UNSPECIFIED ASTHMA, UNCOMPLICATED Assessment and Plan: Not having SOB Continue flovent BID and albuterol on PRN basis (4) Current Visit: Yes Status: Acute Qualifiers: Weeks of gestation: 30 weeks Qualified Code(s): Z3A.30 - 30 weeks gestation of Assessment and Plan: - Currently 3rd trimester - When diabetes controlled, to follow up with die trimmer on outpatient basis. (5) HTN (hypertension) Current Visit: Yes Status: Acute Code(s): I10 - ESSENTIAL (PRIMARY) HYPERTENSION Assessment and Plan: Patient has no issue with HTN during this hospital stay so far. Result of 24 hour protein is elevated, total 480 mg. LFT, platelet, Cr are in normal range. Has no edema Plan, will continue to monitor as at risk for pre-e spectrum disorder Discussion: Date/Time: 03/16/19 3383 This H&P was discussed with [] and [] who agree with the above documentation and plan. Addendum - Attending - Attending Attestation Date/Time: 03/16/19 1858 I personally evaluated the patient and discussed the management with Dr. Waters. I agree with the History, Examination, Assessment and Plan documented above with any addition or exceptions noted below.
[2019-03-16 06:21] VITALS: BP 112/64; TEMP 98.1
[2019-03-16] MEDS: Mometasone 100 MCG HFA INHALER INH SCH (07:38)
[2019-03-16] MEDS: HumaLOG 300 UNITS/3 ML VIAL SC SCH ×2 (08:01→12:45)
[2019-03-16] MEDS: metFORMIN 500 MG TAB PO SCH (08:04)
[2019-03-16] MEDS ORDERED: Insulin Glargine 36 UNITS in Pre-Filled Syringe 1 EACH SC SCH (09:00)
[2019-03-16] MEDS: Aspirin 81 mg Enteric Coated Tablet PO SCH (09:46)
[2019-03-16] MEDS: HumaLOG 300 UNITS/3 ML VIAL SC PRN (11:02)
[2019-03-17] MEDS ORDERED: Insulin Glargine 38 UNITS in Pre-Filled Syringe 1 EACH SC SCH (09:00)
--- NOTE | 2019-03-18 07:21 | DIS ---
DATE OF ADMISSION: 03/14/2019 DATE OF DISCHARGE: 03/16/2019 DISCHARGE DIAGNOSES: Chronic hypertension and insulin-dependent diabetes at 30-3/7th weeks' gestation. SUMMARY OF HOSPITAL COURSE: The patient was admitted on Monday because of elevated blood pressures at [facility] in [place]. She has had two 24-hour urine collections during her , which initial was at about 200 mg in 24 hours and the second was in the upper 300s to lower 400s. She was admitted and noted to have high blood pressures upon presentation. She did not require antihypertensives during this hospitalization. ultrasound revealed CGA of 31 weeks with an estimated weight of 1690 g. Normal MASSIEL on transverse lie. Glycemic control was improved during the hospitalization. Hematocrit on admission was 36% with normal platelet count. LFTs were within normal limits with a normal creatinine. Hemoglobin A1c was 6.7. Urine creatinine to protein was 0.3. Her 24-hour urine had a volume of 2500 mL with 480 mg of protein in a 24-hour period. The patient will be discharged home with close follow up in [address] [facility] [place]. precautions and was instructed to contact her employer, which is [employer] and to get on short-term disability for home rest because of her elevated blood pressures. Importance of glycemic control was emphasized with the patient. Discharge insulin is Lantus of 32 units q.a.m. and 38 units q.p.m., and Humalog insulin 14 units with each meal along with her metformin dose. Job ID: [id number]
== END 2019-03-16 13:44 | disposition home health service (06) ==
LOC: L&D/OP 16:12 → L&D 22:08 → INTOOBSV 22:08
PROVIDERS: ADMIT Obstetrics & Gynecology; ATTEND Obstetrics & Gynecology
DX: O10.013 Pre-existing essential hypertension complicating pregnancy, third trimester (principal); O24.113 Pre-existing type 2 diabetes mellitus, in pregnancy, third trimester; E11.9 Type 2 diabetes mellitus without complications; O99.513 Diseases of the respiratory system complicating pregnancy, third trimester; J45.909 Unspecified asthma, uncomplicated; E78.5 Hyperlipidemia, unspecified; E66.9 Obesity, unspecified; Z3A.30 30 weeks gestation of pregnancy; Z88.8 Allergy status to other drugs, medicaments and biological substances; Z79.51 Long term (current) use of inhaled steroids
CPT/HCPCS: 36415; 36416; 76805; 80053; 81003; 82570; 83036; 84156; 84550; 85025; G0378; J1825

== ENCOUNTER 2019-04-10 11:22 | Day surgery (SDC) | payer BC, OTHER ==
[2019-04-10 12:14] LABS: Hemoglobin 13.9 g/dL (12.0-16.0); Mean Corpuscular HGB CONC 35.3 g/dL (32.0-36.0); Mean Corpuscular Hemoglobin 34.8 pg (27.0-31.0); Mean Corpuscular Volume 98.6 fL (78.0-98.0); Mean Platelet Volume 8.7 fL (7.4-10.4); Platelet Count 154 thou/uL (130-400); RBC Distribution Width 11.8 % (11.5-14.5); Red Blood Cell (RBC) Count 4.01 mill/uL (4.20-5.40); White Blood Cell (WBC) Count 7.3 thou/uL (4.8-10.8)
[2019-04-10 12:36] VITALS: BMI 37.3
[2019-04-10 12:36] LABS: ALT (SGPT) Less than 7 U/L (8-55); AST (SGOT) 7 U/L (5-34); Alkaline Phosphatase 86 U/L (40-150); Anion Gap 11 mmol/L (10-20); BUN (Urea Nitrogen) 8 mg/dL (7.0-18.7); Bilirubin, Total 0.4 mg/dL (0.2-1.2); Calc. Creatinine Clearance 0 mL/min (70-130); Calcium 9.1 mg/dL (7.8-10.44); Carbon Dioxide 22 mmol/L (22-29); Chloride 104 mmol/L (98-107); Estimated GFR-MDRD Greater than 90; Globulin 3.5 g/dL (2.4-3.5); Glucose 214 mg/dL (70-105); Protein, Total 6.5 g/dL (6.0-8.3); Sodium 133 mmol/L (136-145); Uric Acid 3.7 mg/dL (2.6-6.0)
[2019-04-10] MEDS ORDERED: Acetaminophen 325 MG TAB PO PRN (14:28)
--- NOTE | 2019-04-10 15:19 | PRG ---
DATE OF SERVICE: 04/10/2019 TIME OF SERVICE: 14:30. PRESENTING COMPLAINT: Ms. Murdock is a 33-year-old 4, para 3, at 34 weeks' gestation, sent over from Dr. Cecilio Reza's private office for mild headache and elevated blood pressure of 152/90. The patient is an insulin-dependent diabetic and has developed worsening proteinuria with a baseline of 300 mg for 24 hours and recent 600 mg for 24 hours. She presented to clinic complaining of a mild headache since 7:00 a.m. She denied changes in her vision, right upper quadrant pain. She reports an active fetus. DIRECTOR GOVERNMENT HISTORY: x3. Insulin-dependent diabetes. The patient has a history of genital herpes simplex, was started on medication in February and had a recent outbreak. She denies other STD history. MEDICAL HISTORY: Significant for diabetes. The patient is poorly compliant on diabetic control when she was not ; however, during is compliant. SURGICAL HISTORY: . ALLERGIES: FLUCONAZOLE AND IMITREX. MEDICATIONS: Flovent, Levemir and NovoLog and metformin, Protonix, and Valtrex. SOCIAL HISTORY: The patient had a positive urine drug screen for alcohol in early . The patient reports she has not been consuming alcohol in . FAMILY HISTORY: Noncontributory except for the history of present illness. REVIEW OF SYSTEMS: Noncontributory except for the history of present illness. PHYSICAL EXAMINATION: GENERAL: female, resting comfortably. VITAL SIGNS: Serial blood pressures on labor and delivery have been 128/71, 123/71, 126/76, 131/72, 119/72, 124/77, 128/69, 129/70, 122/70. Temperature 98.5, respirations 18, pulse 85. HEENT: Within normal limits. LUNGS: Clear to auscultation bilaterally. HEART: Regular rate and rhythm. ABDOMEN: Soft, nontender. No rebound or guarding. VULVA: The patient has resolving HSV. VAGINAL: Exam was deferred. EXTREMITIES: No clubbing, cyanosis, or edema. heart rate tracing was carried out. Nonstress test greater than 1 hour with category 1 tracing. No decelerations, positive accelerations. LABORATORY DATA: The patient's hematocrit is 39.5%, which is stable. Platelet count is 154, which is consistent with earlier platelet counts. Comp metabolic panel reveals an AST and ALT of 7 or less with a normal creatinine and a blood glucose of 214. IMPRESSION: 34 weeks' gestation, moderate to poor glycemic control with mild headache, but no evidence of preeclampsia. PLAN: Discharge home. ER precautions. Weekly Followup at [facility] [place]. Job ID: [id number]
== END 2019-04-10 15:05 | disposition home or self-care (01) ==
LOC: L&D/OP 11:22
PROVIDERS: ATTEND Obstetrics & Gynecology
DX: O99.89 Other specified diseases and conditions complicating pregnancy, childbirth and the puerperium (principal); R51 Headache; R03.0 Elevated blood-pressure reading, without diagnosis of hypertension; O24.113 Pre-existing type 2 diabetes mellitus, in pregnancy, third trimester; E11.9 Type 2 diabetes mellitus without complications; Z3A.34 34 weeks gestation of pregnancy; Z79.4 Long term (current) use of insulin; Z79.82 Long term (current) use of aspirin; Z79.899 Other long term (current) drug therapy; Z88.1 Allergy status to other antibiotic agents; Z88.8 Allergy status to other drugs, medicaments and biological substances
CPT/HCPCS: 36415; 80053; 84550; 85027; 99282

== ENCOUNTER 2019-05-02 10:09 | Inpatient (IN) | payer BC, OTHER ==
[2019-05-02] MEDS ORDERED: hydrALAZINE 20 MG/ML VIAL SLOW IVP PRN ×2 (10:32→17:56)
[2019-05-02] MEDS ORDERED: Promethazine HCl 25 MG/ML VIAL IM PRN ×4 (10:32→19:31)
[2019-05-02] MEDS ORDERED: Ondansetron PF 4 MG/2 ML Vial IVP PRN ×4 (10:32→19:31)
[2019-05-02] MEDS ORDERED: Lactated Ringer's 1,000 ML IV SCH ×2 (10:32)
[2019-05-02] MEDS ORDERED: CEFAZOLIN 2 GM in Premix Bag 1 BAG IVPB SCH (10:32)
[2019-05-02] MEDS ORDERED: Bicitra 30 ML UDCUP PO SCH (10:32)
--- NOTE | 2019-05-02 10:42 | HP ---
REASON FOR ADMISSION: Repeat section at 37 weeks' gestation with poorly-controlled insulin-dependent diabetes. HISTORY OF PRESENT ILLNESS: Ms. Murdock is a 33-year-old 4, para 3, AB 0 at 37 weeks and 1 day with an EDC is 05/22/2019. Her is complicated by poorly-controlled diabetes as well as hypertension, alcohol intoxication, and a history of genital herpes. She has had previous x3. She desires repeat . She does not desire risk-producing salpingectomy. OPERATIONS INTELLIGENCE HISTORY: As noted, very complicated history. The patient was seen by Dr. Bhakta during her with some improvement of her glucose management. However, the patient persistently did not have her logs in clinic. Blood pressures increased to 150s to 160s over 90s at about 30 to 31 weeks gestation. The patient had HSV recurrence at 33 weeks and had stable proteinuria in the 300 to 600 g range. Repeat BPPs and NSTs were normal limits throughout the . MEDICAL HISTORY: Diabetes, gestational hypertension with evidence of renal injury secondary to diabetes. PAST SURGICAL HISTORY: C-sections x3 and a cholecystectomy. ALLERGIES: IMITREX AND FLUCONAZOLE. MEDICATIONS: 1. Lantus. 2. Humalog insulin. 3. Valtrex. 4. vitamins. SOCIAL HISTORY: Denies tobacco, alcohol, or IV drug abuse, although the patient had positive ethanol on drug screen in early . PHYSICAL EXAMINATION: GENERAL: female, in no acute distress. Not obviously intoxicated. VITAL SIGNS: Blood pressure 132/72, pulse 85, respirations 18, weight 212. HEENT: Within normal limits. LUNGS: Clear to auscultation bilaterally. HEART: Regular rhythm. BREASTS: No masses bilaterally. ABDOMEN: Soft and nontender with a fundal height of 38 to 39 cm. FHTs 130s. Vulva without lesions at this time. Cervix closed long and high. EXTREMITIES: No clubbing, cyanosis, or edema. LABORATORY DATA: Most recent hemoglobin A1c was 6.5%. IMPRESSION: Previous section x3 at 37 to 38 weeks' gestation with poorly-controlled insulin-dependent diabetes, gestational hypertension, genital herpes, and history of alcohol abuse. PLAN: Repeat section at 37 to 38 weeks' gestation because of insulin-dependent diabetes and poor control. We will administer appropriate antibiotic and DVT prophylaxis. Job ID: [id number]
[2019-05-02 10:53] VITALS: BMI 37.3
[2019-05-02] MEDS ORDERED: Oxytocin 10 UNITS/ML VIAL ONE ×2 (12:00→15:13)
[2019-05-02] MEDS ORDERED: Ondansetron PF 4 MG/2 ML Vial ONE (12:00)
[2019-05-02] MEDS ORDERED: MORPHINE 5 MG/10 ML PF VIAL ONE (12:00)
[2019-05-02 12:29] LABS: Hemoglobin 14.3 g/dL (12.0-16.0); Mean Corpuscular HGB CONC 34.7 g/dL (32.0-36.0); Mean Corpuscular Hemoglobin 33.1 pg (27.0-31.0); Mean Corpuscular Volume 95.4 fL (78.0-98.0); Mean Platelet Volume 9.8 fL (7.4-10.4); Platelet Count 152 thou/uL (130-400); RBC Distribution Width 12.2 % (11.5-14.5); Red Blood Cell (RBC) Count 4.32 mill/uL (4.20-5.40); White Blood Cell (WBC) Count 8.2 thou/uL (4.8-10.8)
[2019-05-02] MEDS ORDERED: Ondansetron HCl/PF 4 MG/2 ML Vial IVP PRN (12:45)
[2019-05-02] MEDS ORDERED: Naloxone HCl 0.4 mg/ml Vial IV PRN ×4 (12:45→19:31)
[2019-05-02] MEDS ORDERED: diphenhydrAMINE 50 MG/ML VIAL IVP PRN (12:45)
[2019-05-02] MEDS ORDERED: Promethazine HCl 25 MG SUPP PR PRN ×2 (12:45→19:31)
[2019-05-02] MEDS ORDERED: Promethazine HCl 25 MG/ML VIAL SLOW IVP PRN (12:45)
[2019-05-02] MEDS ORDERED: Naloxone HCl 0.4 mg/ml Vial IVP PRN ×2 (12:45→13:00)
[2019-05-02] MEDS ORDERED: Ketorolac Tromethamine 30 MG/ML VIAL IVP PRN (12:45)
[2019-05-02] MEDS ORDERED: Communication Order-Pharmacy FS SCH (13:00)
[2019-05-02 13:08] LABS: HBSAg Index 0.24 S/CO (0-0.99); Hep B Surf Ag Non-Reactive S/CO (NonReactive)
[2019-05-02 13:10] LABS: Syphilis Antibody Nonreactive (Nonreactive); Syphilis Antibody Index 0.03 S/CO (<1.00 Non-Reactive)
[2019-05-02] MEDS ORDERED: ePHEDrine/0.9% NaCl/PF SYRINGE 50 mg/10 ml ONE ×2 (14:43→14:52)
--- NOTE | 2019-05-02 16:01 | OP ---
DATE OF PROCEDURE: 05/02/2019 PREOPERATIVE DIAGNOSES: 37 to 38 weeks gestation, poorly-controlled insulin-dependent diabetes, previous x3. POSTOPERATIVE DIAGNOSES: 37 to 38 weeks gestation, poorly-controlled insulin-dependent diabetes, previous x3. PROCEDURES PERFORMED: Repeat low-transverse section without extension. RAFTSMAN: Vika Peres PA-C for [facility]. ANESTHESIA: Subarachnoid block. Viral Dorantes MD. MEDICATIONS: 2 g Ancef preincision, DVT prophylaxis, SCDs. DRAINS: Tang to gravity. OPERATIVE FINDINGS: 1. Vigorous female infant nursery, Apgars, weight pending. 2. Normal-appearing uterus, tubes, and ovaries bilaterally. 3. Hemostasis, clear urine. COUNTS: Correct at the end of the procedure. DISPOSITION: Recovery room in good condition. DESCRIPTION OF PROCEDURE: After obtaining appropriate informed consent, the patient was taken to the operating room, where subarachnoid block was achieved without difficulty. She was prepped and draped in the usual manner. Previous Pfannenstiel incision was incised sharply, carried down to the fascia, incised superiorly and laterally with curved Alonso scissors. Rectus was dissected off sharply, superiorly, and inferiorly, divided in midline. Peritoneum entered bluntly, taking care to avoid trauma to the underlying viscera. Efrem O retractor placed inside, very thin lower uterine segment identified. Low-transverse hysterotomy incision was made, extended superiorly and laterally with finger fractionation. Infant's head elevated to hysterotomy, suction, cord clamped and cut, handed off to the team in attendance. Usual cord blood sample was obtained. Placenta was removed manually. Uterus was noted to be without extension on the hysterotomy and closed using a running locking #1 Monocryl suture. Good hemostasis was noted bilaterally. Gutters were irrigated out. Reinspection, hysterotomy revealed it to be dry. Efrem O retractor removed, and the fascia was reapproximated using 0 PDS suture. Subcutaneous tissue irrigated, rendered hemostatic with Bovie cautery, reapproximated using 3-0 plain gut and skin leola. The patient was taken to recovery room in good condition. Job ID: [id number]
[2019-05-02] MEDS ORDERED: Labetalol HCl 100 MG/20 ML VIAL ONE (16:18)
[2019-05-02] MEDS ORDERED: ePHEDrine 50 MG/ML VIAL ONE (16:36)
[2019-05-02] MEDS ORDERED: Acetaminophen 325 MG TAB PO PRN (17:56)
[2019-05-02] MEDS ORDERED: HYDROcodone/Acetaminophen 5/325 mg Tablet PO PRN ×2 (17:56)
[2019-05-02] MEDS ORDERED: NS / Oxytocin 40 units/1000ml 1,000 ML IV SCH (17:56)
[2019-05-02] MEDS ORDERED: PROVENTIL INHALER 6.7 G (200 INHALATIONS) INH PRN (17:56)
[2019-05-02] MEDS ORDERED: Zolpidem Tartrate 5 MG TAB PO PRN (17:56)
[2019-05-02] MEDS ORDERED: Lanolin Ointment 7 GM TUBE TOP PRN (17:56)
[2019-05-02] MEDS ORDERED: metFORMIN 500 MG TAB PO SCH (18:15)
[2019-05-02] MEDS ORDERED: Hydrocerin (Eucerin) Cream 120 gm Jar TOP PRN (19:31)
[2019-05-02] MEDS: Ketorolac Tromethamine 30 MG/ML VIAL IVP PRN (19:56)
[2019-05-02] MEDS: diphenhydrAMINE 50 MG/ML VIAL IVP PRN (20:02)
[2019-05-02] MEDS ORDERED: Insulin Glargine 15 UNITS in Pre-Filled Syringe 1 EACH SC SCH (21:00)
[2019-05-02] MEDS ORDERED: Adacel (T-DAP) 0.5 ML SYRINGE IM ONE (21:00)
[2019-05-02] MEDS: Ibuprofen 800 MG TAB PO SCH (23:41)
[2019-05-03] MEDS: diphenhydrAMINE 50 MG/ML VIAL IVP PRN (01:24)
[2019-05-03] MEDS: Ketorolac Tromethamine 30 MG/ML VIAL IVP PRN ×2 (01:25→06:25)
[2019-05-03] MEDS ORDERED: Sodium Chloride 0.9% 10 ML ONE (06:23)
[2019-05-03] MEDS: Ibuprofen 800 MG TAB PO SCH ×3 (06:27→21:15)
[2019-05-03] MEDS: Simethicone Chewable 80 MG TAB PO PRN ×2 (06:28→21:15)
[2019-05-03 06:50] LABS: Hemoglobin 12.1 g/dL (12.0-16.0); Mean Corpuscular HGB CONC 35.5 g/dL (32.0-36.0); Mean Corpuscular Hemoglobin 34.7 pg (27.0-31.0); Mean Corpuscular Volume 97.6 fL (78.0-98.0); Mean Platelet Volume 9.3 fL (7.4-10.4); Platelet Count 94 thou/uL (130-400); RBC Distribution Width 12.5 % (11.5-14.5); Red Blood Cell (RBC) Count 3.48 mill/uL (4.20-5.40); White Blood Cell (WBC) Count 7.5 thou/uL (4.8-10.8)
--- NOTE | 2019-05-03 07:04 | PDOC.PP ---
Post Progress Note Post Day #: 1 PO intake tolerated: yes Flatus: yes Ambulation: no Vital Signs (12 hours) Temp Pulse Resp BP Pulse Ox 05/02/19 23:30 98.1 F 96 17 135/73 05/02/19 20:00 98.0 F 94 18 145/72 H 99 Weight Weight 211 lb - Physical Examination General: NAD Cardiovascular: no m/r/g, RRR Respiratory: clear to auscultation bilaterally, non-labored breathing Abdominal: + bowel sounds, lochia, no distention, appropriately TTP Extremities: negative homans (B) Skin: CS incision dry & intact, no rash Neurological: no gross focal deficits Psychiatric: A&Ox3, normal affect Result Diagrams: 05/03/19 06:09 Additional Labs: Post Labs Blood Type A POSITIVE 05/02/19 10:57 Hep Bs Antigen Non-Reactive S/CO (NonReactive) 05/02/19 10:57 - Assessment/Plan accuchex low post op. will stop insulin and see how blood sugars do on metformin only
[2019-05-03] MEDS ORDERED: Insulin Glargine 15 UNITS in Pre-Filled Syringe 1 EACH SC SCH (09:00)
[2019-05-03] MEDS: Prenatal Vitamin 1 TAB PO SCH (10:12)
[2019-05-03] MEDS: metFORMIN 500 MG TAB PO SCH ×2 (10:12→20:09)
[2019-05-03] MEDS ORDERED: HYDROcodone/Acetaminophen 5/325 mg Tablet PO PRN (13:37)
[2019-05-03] MEDS: HYDROcodone/Acetaminophen 5/325 mg Tablet PO PRN ×2 (14:05→20:12)
[2019-05-04] MEDS: HYDROcodone/Acetaminophen 5/325 mg Tablet PO PRN ×2 (01:33→05:44)
[2019-05-04] MEDS: Ibuprofen 800 MG TAB PO SCH ×3 (05:44→21:35)
[2019-05-04] MEDS: Simethicone Chewable 80 MG TAB PO PRN ×3 (05:52→21:36)
[2019-05-04] MEDS ORDERED: diphenhydrAMINE 25 MG CAP PO PRN (07:40)
[2019-05-04] MEDS ORDERED: HYDROcodone/Acetaminophen 7.5/325 mg Tablet PO PRN (07:53)
--- NOTE | 2019-05-04 07:55 | PDOC.PP ---
Post Progress Note Post Day #: 2 Subjective: c/o pain in inc 06/22, last norco 2tab was 2.5 hr ago. PO intake tolerated: yes Flatus: yes Ambulation: yes Vital Signs (12 hours) Temp Pulse Resp BP 05/04/19 04:30 97.9 F 80 20 150/86 H 05/04/19 01:33 98.0 F 86 20 125/73 05/03/19 21:15 98.3 F 80 20 159/92 H Weight Weight 211 lb - Physical Examination General: NAD Cardiovascular: RRR Respiratory: clear to auscultation bilaterally, non-labored breathing Abdominal: + bowel sounds, no distention, appropriately TTP Fundus firm & at: umb Skin: CS incision dry & intact, no rash Neurological: no gross focal deficits Psychiatric: normal affect Result Diagrams: 05/03/19 06:09 Additional Labs: Post Labs Blood Type A POSITIVE 05/02/19 10:57 Hep Bs Antigen Non-Reactive S/CO (NonReactive) 05/02/19 10:57 - Assessment/Plan POD2 s/p RCS at 37w for T2DM, GHTN VSSAF Hgb 12.1 postop, no sx anemia, cont PNV Pain- exam benign, incr norco to 7.5, cont sched ibuprofen Met all other postop milestones T2DM- restarted on metformin 500 BID, BS are fair control, incr to 1000 BID GHTN- BP nl-mild, no sx PIH, start on labetalol 200 BID in NICU Rh pos RImm Cont postop care, possible home tomorrow
[2019-05-04] MEDS: metFORMIN 500 MG TAB PO SCH ×2 (08:26→17:32)
[2019-05-04] MEDS: Prenatal Vitamin 1 TAB PO SCH (08:27)
[2019-05-04] MEDS: diphenhydrAMINE 25 MG CAP PO PRN ×2 (08:27→17:32)
[2019-05-04] MEDS: Labetalol 100 MG TAB PO SCH ×2 (08:27→21:38)
[2019-05-04] MEDS ORDERED: Polyethylene Glycol 3350 17 GM Packet PO PRN (10:09)
[2019-05-04] MEDS: HYDROcodone/Acetaminophen 7.5/325 mg Tablet PO PRN ×3 (10:31→19:08)
[2019-05-04] MEDS: Docusate Calcium (SURFAK) 240 MG CAP PO SCH ×2 (11:41→21:36)
[2019-05-04 22:17] VITALS: TEMP 98.7
[2019-05-05] MEDS: HYDROcodone/Acetaminophen 7.5/325 mg Tablet PO PRN ×4 (00:07→12:15)
[2019-05-05 04:44] VITALS: BP 134/64
[2019-05-05] MEDS: Ibuprofen 800 MG TAB PO SCH ×2 (05:02→14:04)
--- NOTE | 2019-05-05 07:15 | PDOC.PP ---
Post Progress Note Post Day #: 3 Subjective: Feeling better this morning and notes she slept better since baby was in the room with her. PO intake tolerated: yes Flatus: yes Ambulation: yes Vital Signs (12 hours) Temp Pulse Resp BP BP Pulse Ox 05/05/19 04:43 82 134/64 05/04/19 21:38 81 144/75 H 05/04/19 20:30 98.7 F 81 16 144/75 H 96 Weight Weight 95.708 kg - Physical Examination General: NAD Cardiovascular: no m/r/g, RRR Respiratory: clear to auscultation bilaterally Abdominal: + bowel sounds, lochia (scant), appropriately TTP Fundus firm & at: umbilicus Extremities: negative homans (B) Skin: CS incision dry & intact, no rash Neurological: no gross focal deficits Psychiatric: A&Ox3, normal affect Result Diagrams: 05/03/19 06:09 Additional Labs: Post Labs Blood Type A POSITIVE 05/02/19 10:57 Hep Bs Antigen Non-Reactive S/CO (NonReactive) 05/02/19 10:57 (1) HLD (hyperlipidemia) Code(s): E78.5 - HYPERLIPIDEMIA, UNSPECIFIED Status: Acute (2) Pregestational diabetes mellitus, modified White class B Code(s): O24.319 - UNSP PRE-EXISTING DIABETES IN , UNSP TRIMESTER Status: Acute - Assessment/Plan 33 yo G4 [facility], GHTN 1. POD #3 - Meeting all postop milestones - Hgb 12.1 postop, no sx anemia, cont PNV - Passing flatus, no BM, will add Miralax today - Cont scheduled ibuprofen - F/u with Dr. Reza on for staple removal 2. T2DM: Metformin incr to 1000 BID yesterday - Fair control, needs close f/u with PCP OP 3. GHTN- BP nl-mild, no sx PIH, continue labetalol 200 BID Infant out of NICU, likely d/c today. Will plan to d/c mom today and B&B if needed. Dr. Reza has send [place] rx.
[2019-05-05] MEDS ORDERED: Polyethylene Glycol 3350 17 GM Packet PO SCH (07:30)
[2019-05-05] MEDS: Prenatal Vitamin 1 TAB PO SCH (08:23)
[2019-05-05] MEDS: Docusate Calcium (SURFAK) 240 MG CAP PO SCH (08:23)
[2019-05-05] MEDS: Simethicone Chewable 80 MG TAB PO PRN (08:23)
[2019-05-05] MEDS: Labetalol 100 MG TAB PO SCH (08:23)
[2019-05-05] MEDS: metFORMIN 500 MG TAB PO SCH (08:26)
[2019-05-05] MEDS: diphenhydrAMINE 25 MG CAP PO PRN (08:29)
== END 2019-05-05 16:30 | disposition home or self-care (01) | DRG 788 ==
LOC: L&D 10:09 → 3SW 19:22 → EDSTATUS 05-22 14:02
PROVIDERS: ADMIT Obstetrics & Gynecology; ATTEND Obstetrics & Gynecology
PROC: 10D00Z1 Extraction of Products of Conception, Low, Open Approach (ICD-10-PCS; principal; 2019-05-02)
DX: O34.211 Maternal care for low transverse scar from previous cesarean delivery (principal); O24.424 Gestational diabetes mellitus in childbirth, insulin controlled; Z3A.37 37 weeks gestation of pregnancy; Z37.0 Single live birth; O13.4 Gestational [pregnancy-induced] hypertension without significant proteinuria, complicating childbirth; O75.89 Other specified complications of labor and delivery; E78.5 Hyperlipidemia, unspecified
CPT/HCPCS: 36415; 36416; 51702; 85027; 86780; 86850; 86900; 86901; 87340; J0690; J1200; J1815; J1885; J2270; J2405; J2590; J3490; Q0163

== ENCOUNTER 2019-05-23 20:22 | Emergency (ER) | payer BC, OTHER ==
[2019-05-23] MEDS ORDERED: Dexamethasone 4 MG TAB ONE (23:12)
[2019-05-23] MEDS ORDERED: Bicillin LA 1.2 MILLION UNITS/2 ML SYRINGE ONE (23:13)
[2019-05-23] MEDS ORDERED: Ibuprofen 800 MG TAB ONE (23:31)
== END 2019-05-23 23:38 | disposition home or self-care (01) ==
LOC: ERS 20:22
DX: J02.0 Streptococcal pharyngitis (principal); H92.03 Otalgia, bilateral; N64.4 Mastodynia; E11.9 Type 2 diabetes mellitus without complications; E78.5 Hyperlipidemia, unspecified; Z79.84 Long term (current) use of oral hypoglycemic drugs; Z79.899 Other long term (current) drug therapy
CPT/HCPCS: 96372; 99283; J0561; J8540

== ENCOUNTER 2019-07-12 20:13 | Emergency (ER) | payer BC, OTHER ==
[~2019-07-12 20:13] MED LIST: ISOVUE-370 76%-LOCM 1 ML ONE
[2019-07-12 21:21] LABS: #Eosinphils 0.2 thou/uL (0.0-0.7); #Lymphocytes 3.1 thou/uL (1.20-3.40); #Monocytes 0.5 thou/uL (0.11-0.59); #Neutrophils 2.9 thou/uL (1.40-6.50); %Basophils 0.7 % (0.0-1.0); %Eosinophils 3.1 % (0.0-10.0); %Lymphocytes 45.8 % (21.0-51.0); %Monocytes 7.4 % (0.0-10.0); Hemoglobin 13.6 g/dL (12.0-16.0); Mean Corpuscular Hemoglobin 33.2 pg (27.0-31.0); Mean Corpuscular Volume 94.7 fL (78.0-98.0); Mean Platelet Volume 7.8 fL (7.4-10.4); Platelet Count 190 thou/uL (130-400); RBC Distribution Width 11.8 % (11.5-14.5); White Blood Cell (WBC) Count 6.7 thou/uL (4.8-10.8)
[2019-07-12 21:21] LABS: Bacteria/HPF None Seen HPF (None Seen); Bilirubin Negative (Negative); Blood, Urine Trace (Negative); Clarity Clear (Clear); Glucose, Urine (Dipstick) Greater than 1000 mg/dL (Negative); Leukocyte Negative Leu/uL (Negative); Nitrite Negative (Negative); Protein, Urine (Dipstick) 50 mg/dL (Neg-Trace); Urobilinogen Normal mg/dL (Less than 2)
[2019-07-12 21:24] LABS: Pregnancy Test - Urine (BHCG) Negative (Negative); Pregu Control Background? CLEAR/WHITE (CLR/WHITE); Pregu Control Bar Appear? YES (CONTROL BAR); Specific Gravity 1.024 (1.002-1.036)
[2019-07-12 21:28] LABS: ALT (SGPT) 16 U/L (8-55); AST (SGOT) 13 U/L (5-34); Albumin 3.7 g/dL (3.5-5.0); Alkaline Phosphatase 69 U/L (40-150); Anion Gap 14 mmol/L (10-20); BUN (Urea Nitrogen) 12 mg/dL (7.0-18.7); Bilirubin, Total 0.2 mg/dL (0.2-1.2); Calc. Creatinine Clearance 0 mL/min (70-130); Calcium 8.9 mg/dL (7.8-10.44); Carbon Dioxide 22 mmol/L (22-29); Chloride 102 mmol/L (98-107); Estimated GFR-MDRD Greater than 90; Globulin 3.5 g/dL (2.4-3.5); Glucose 274 mg/dL (70-105); Lipase 20 U/L (8-78); Potassium 4.7 mmol/L (3.5-5.1); Protein, Total 7.2 g/dL (6.0-8.3); Sodium 133 mmol/L (136-145)
--- NOTE | 2019-07-12 22:09 | CT ---
CT ABDOMEN AND PELVIS WITH IV CONTRAST: 07/12/19 HISTORY: 33-year-old female with abdominal pain. Patient had a two weeks ago. Incision site is heali ng well. FINDINGS: The lung bases are clear. There are changes of fatty infiltration of the liver which were also seen o n 03/16/17. The patient is post cholecystectomy. The spleen, pancreas, adrenal glands and kidneys are n ormal. No free air, free fluid, or lymphadenopathy seen in the abdomen or pelvis. Uterus and ovaries are present. Postop changes in the lower anterior abdominal wall are noted. The small bowel loops are not abnormally dilated. A normal appearing appendix is seen. No abnormally loculated fluid collectio n is noted to suggest abscess formation. IMPRESSION: No CT evidence of acute process. POS: [facility]
== END 2019-07-12 22:17 | disposition home or self-care (01) ==
LOC: ERS 20:13
DX: R10.12 Left upper quadrant pain (principal); E11.9 Type 2 diabetes mellitus without complications; E78.5 Hyperlipidemia, unspecified; E78.00 Pure hypercholesterolemia, unspecified; I10 Essential (primary) hypertension; Z79.84 Long term (current) use of oral hypoglycemic drugs
CPT/HCPCS: 36415; 74177; 80053; 81003; 81015; 81025; 83690; 85025; Q9966

== ENCOUNTER 2019-11-11 10:47 | Emergency (ER) | payer BC, OTHER ==
[2019-11-11 12:26] LABS: #Basophils 0.1 thou/uL (0.0-0.2); #Eosinphils 0.2 thou/uL (0.0-0.7); #Monocytes 0.5 thou/uL (0.11-0.59); #Neutrophils 4.5 thou/uL (1.40-6.50); %Basophils 0.8 % (0.0-1.0); %Eosinophils 2.4 % (0.0-10.0); %Lymphocytes 27.9 % (21.0-51.0); %Monocytes 6.5 % (0.0-10.0); %Neutrophils 62.5 % (42.0-75.0); Hemoglobin 14.2 g/dL (12.0-16.0); Mean Corpuscular HGB CONC 36.3 g/dL (32.0-36.0); Mean Corpuscular Hemoglobin 33.6 pg (27.0-31.0); Mean Corpuscular Volume 92.7 fL (78.0-98.0); Mean Platelet Volume 7.8 fL (7.4-10.4); Platelet Count 160 thou/uL (130-400); RBC Distribution Width 11.5 % (11.5-14.5); Red Blood Cell (RBC) Count 4.22 mill/uL (4.20-5.40); White Blood Cell (WBC) Count 7.2 thou/uL (4.8-10.8)
[2019-11-11 12:31] LABS: BHCG - Serum Negative (NEGATIVE); Pregs Control Background? CLEAR/WHITE (CLR/WHITE); Pregs Control Bar Appear? YES (CONTROL BAR)
[2019-11-11 12:50] LABS: ALT (SGPT) 25 U/L (8-55); AST (SGOT) 19 U/L (5-34); Albumin 3.5 g/dL (3.5-5.0); Alkaline Phosphatase 49 U/L (40-110); Anion Gap 10 mmol/L (10-20); BUN (Urea Nitrogen) 9 mg/dL (7.0-18.7); Bilirubin, Total 0.4 mg/dL (0.2-1.2); Calc. Creatinine Clearance 0 mL/min (70-130); Carbon Dioxide 26 mmol/L (22-29); Chloride 104 mmol/L (98-107); Estimated GFR-MDRD 84; Globulin 3.2 g/dL (2.4-3.5); Glucose 344 mg/dL (70-105); Potassium 3.9 mmol/L (3.5-5.1); Protein, Total 6.7 g/dL (6.0-8.3); Sodium 136 mmol/L (136-145)
[2019-11-11 13:31] LABS: Bilirubin Negative (Negative); Blood, Urine Negative (Negative); Clarity Clear (Clear); Glucose, Urine (Dipstick) Greater than 1000 mg/dL (Negative); Leukocyte Negative Leu/uL (Negative); Nitrite Negative (Negative); Protein, Urine (Dipstick) 10 mg/dL (Neg-Trace); Urobilinogen Normal mg/dL (Less than 2)
== END 2019-11-11 13:50 | disposition home or self-care (01) ==
LOC: ERS 10:47
DX: E11.65 Type 2 diabetes mellitus with hyperglycemia (principal); R10.30 Lower abdominal pain, unspecified; E78.5 Hyperlipidemia, unspecified; E78.00 Pure hypercholesterolemia, unspecified; I10 Essential (primary) hypertension; F17.200 Nicotine dependence, unspecified, uncomplicated; Z79.4 Long term (current) use of insulin
CPT/HCPCS: 36415; 80053; 81003; 84703; 85025; 99284

== ENCOUNTER 2019-11-20 08:15 | Emergency (ER) | payer BC ==
[2019-11-20 08:48] LABS: #Eosinphils 0.1 thou/uL (0.0-0.7); #Lymphocytes 2.2 thou/uL (1.20-3.40); #Monocytes 0.4 thou/uL (0.11-0.59); #Neutrophils 5.6 thou/uL (1.40-6.50); %Basophils 0.6 % (0.0-1.0); %Eosinophils 1.5 % (0.0-10.0); %Lymphocytes 26.4 % (21.0-51.0); %Neutrophils 66.6 % (42.0-75.0); Hemoglobin 15.2 g/dL (12.0-16.0); Mean Corpuscular HGB CONC 36.1 g/dL (32.0-36.0); Mean Corpuscular Hemoglobin 33.5 pg (27.0-31.0); Mean Corpuscular Volume 92.7 fL (78.0-98.0); Mean Platelet Volume 8.2 fL (7.4-10.4); Platelet Count 162 thou/uL (130-400); RBC Distribution Width 11.4 % (11.5-14.5); Red Blood Cell (RBC) Count 4.54 mill/uL (4.20-5.40); White Blood Cell (WBC) Count 8.5 thou/uL (4.8-10.8)
[2019-11-20 08:54] LABS: BHCG - Serum Negative (NEGATIVE); Pregs Control Background? CLEAR/WHITE (CLR/WHITE); Pregs Control Bar Appear? YES (CONTROL BAR)
[2019-11-20] MEDS ORDERED: Ketorolac Tromethamine 30 MG/ML VIAL ONE (11:27)
--- NOTE | 2019-11-20 12:46 | ULT ---
TRANSABDOMINAL AND TRANSVAGINAL PELVIC ULTRASOUND WITH DOPPLER: 11/20/2019 PROVIDED CLINICAL HISTORY: Pelvic pain. FINDINGS: The uterus appears unremarkable. The right and left ovaries appear sonographically unremarkable. Color Doppler and spectral analysis of the ovarian waveforms demonstrates normal flow bilaterally. There is no evidence for significant free pelvic fluid. IMPRESSION: Normal pelvic ultrasound. POS: OFF
== END 2019-11-20 12:55 | disposition home or self-care (01) ==
LOC: ERS 08:15
DX: N93.8 Other specified abnormal uterine and vaginal bleeding (principal); I10 Essential (primary) hypertension; E11.9 Type 2 diabetes mellitus without complications; E78.5 Hyperlipidemia, unspecified; E78.00 Pure hypercholesterolemia, unspecified; F17.200 Nicotine dependence, unspecified, uncomplicated; Z79.4 Long term (current) use of insulin
CPT/HCPCS: 36415; 76856; 84702; 84703; 85025; 86900; 86901; 87480; 87491; 87510; 87591; 87660; 96372; J1885

== ENCOUNTER 2019-11-30 17:18 | Observation (INO) | payer BC ==
[~2019-11-30 17:18] MED LIST changes: -ISOVUE-370 76%-LOCM 1 ML ONE; +Iopamidol-370 76% 500 ML 1 ML ONE
[2019-11-30] MEDS ORDERED: Ondansetron PF 4 MG/2 ML Vial ONE ×2 (17:35→20:14)
[2019-11-30] MEDS ORDERED: Morphine 4 MG/ML VIAL ONE ×3 (17:53→23:52)
[2019-11-30 17:55] LABS: #Basophils 0.1 thou/uL (0.0-0.2); #Eosinphils 0.1 thou/uL (0.0-0.7); #Monocytes 0.4 thou/uL (0.11-0.59); #Neutrophils 5.1 thou/uL (1.40-6.50); %Basophils 1.2 % (0.0-1.0); %Eosinophils 1.3 % (0.0-10.0); %Lymphocytes 34.3 % (21.0-51.0); %Neutrophils 58.2 % (42.0-75.0); Hemoglobin 16.2 g/dL (12.0-16.0); Mean Corpuscular HGB CONC 33.9 g/dL (32.0-36.0); Mean Corpuscular Volume 91.4 fL (78.0-98.0); Mean Platelet Volume 8.3 fL (7.4-10.4); Platelet Count 192 thou/uL (130-400); Red Blood Cell (RBC) Count 5.21 mill/uL (4.20-5.40); White Blood Cell (WBC) Count 8.7 thou/uL (4.8-10.8)
--- NOTE | 2019-11-30 18:03 | RAD ---
RADIOGRAPH CHEST 1 VIEW: DATE: 11/30/2019 TIME: 5:26 PM HISTORY: 33-year-old female with dyspnea and chest pain COMPARISON: 09/21/2016 FINDINGS: Subtle finding of ill-defined, hazy, reticular faint densities at left lung base. This was probably p resent previously and is probably chronic. It appears slightly worse, probably because of positional and inspirational differences. The rest of the lungs are clear. Cardiomediastinal silhouet te is normal. Lateral costophrenic angles are sharp. No pneumothorax. IMPRESSION: Probably no acute disease. Faint density at left base is probably chronic. However, follow-up is ngoc mmended in a few days.
[2019-11-30] MEDS ORDERED: Pantoprazole 80 MG, Admixture Fee 1 EACH in Sodium Chloride 0.9% 100 ML IVPB SCH (18:15)
[2019-11-30 18:17] LABS: ALT (SGPT) 30 U/L (8-55); AST (SGOT) 19 U/L (5-34); Albumin 4.2 g/dL (3.5-5.0); Alkaline Phosphatase 72 U/L (40-110); Anion Gap 20 mmol/L (10-20); BUN (Urea Nitrogen) 7 mg/dL (7.0-18.7); Bilirubin, Total 0.6 mg/dL (0.2-1.2); Calc. Creatinine Clearance 0 mL/min (70-130); Calcium 9.5 mg/dL (7.8-10.44); Carbon Dioxide 21 mmol/L (22-29); Chloride 97 mmol/L (98-107); Estimated GFR-MDRD 80; Globulin 4.1 g/dL (2.4-3.5); Glucose 340 mg/dL (70-105); Lipase 31 U/L (8-78); Potassium 3.2 mmol/L (3.5-5.1); Protein, Total 8.3 g/dL (6.0-8.3); Sodium 135 mmol/L (136-145)
[2019-11-30 19:28] LABS: Bacteria/HPF None Seen HPF (None Seen); Bilirubin Negative (Negative); Blood, Urine Negative (Negative); Clarity Clear (Clear); Glucose, Urine (Dipstick) Greater than 1000 mg/dL (Negative); Leukocyte Negative Leu/uL (Negative); Nitrite Negative (Negative); Pregnancy Test - Urine (BHCG) Negative (Negative); Pregu Control Background? CLEAR/WHITE (CLR/WHITE); Pregu Control Bar Appear? YES (CONTROL BAR); Protein, Urine (Dipstick) 100 mg/dL (Neg-Trace); RBC/HPF 0-3 HPF (0-3); Specific Gravity 1.028 (1.002-1.036); Urobilinogen Normal mg/dL (Less than 2)
[2019-11-30] MEDS ORDERED: Lidocaine Viscous Sol 2% 15 ml UD Cup ONE (20:45)
[2019-11-30] MEDS ORDERED: Mag-Al 1200 mg/1200 mg/30 ML UDCUP ONE (20:45)
--- NOTE | 2019-11-30 21:08 | CT ---
CT ABDOMEN AND PELVIS WITH IV CONTRAST 11/30/19 PROVIDED CLINICAL HISTORY: Abdominal pain. FINDINGS: Comparison is made with the study dated 07/12/19. The visualized lung bases are free of significant opacity. The liver, spleen, pancreas, kidneys, and adrenal glands demonstrate an unremarkable CT appearance. There is no bowel dilatation, inflammatory fat stranding, free fluid or free air apparent. There is n o evidence for appendicitis. The osseous structures demonstrate no concerning lytic or blastic lesions. IMPRESSION: No evidence for an acute process. POS: [facility]
[2019-11-30] MEDS ORDERED: Promethazine HCl 25 MG/ML VIAL ONE (21:53)
[2019-12-01] MEDS ORDERED: Morphine 4 MG/ML VIAL SLOW IVP SCH (00:45)
[2019-12-01 00:47] VITALS: BMI 33.6
[2019-12-01] MEDS: Sodium Chloride 0.9% 1,000 ML IV SCH ×2 (01:00→07:46)
[2019-12-01] MEDS ORDERED: Metoclopramide HCl 10 MG/2 ML VIAL IVP PRN (01:28)
[2019-12-01 01:34] LABS: Amphetamine Not Detected (NotDetected); Barbiturates Screen Not Detected (NotDetected); Benzodiazepine Screen Not Detected (NotDetected); Cocaine Metabolite Screen Not Detected (NotDetected); Medtox Control Line Valid? VALID (VALID); Medtox Reader # READER 4; Methadone Not Detected (NotDetected); Methamphetamine Not Detected (NotDetected); Opiate Screen Detected (NotDetected); Oxycodone Screen Not Detected (NotDetected); Phencyclidine (PCP) Not Detected (NotDetected); THC/Cannabinoid Screen Not Detected (NotDetected); Tricyclic Screen Not Detected (NotDetected)
[2019-12-01] MEDS: Fentanyl 100 MCG/2 ML VIAL SLOW IVP PRN ×3 (01:56→20:56)
[2019-12-01] MEDS ORDERED: Ondansetron PF 4 MG/2 ML Vial IVP PRN (02:37)
[2019-12-01] MEDS ORDERED: cloNIDine 0.1 MG TAB PO PRN (02:37)
[2019-12-01] MEDS ORDERED: Promethazine HCl 12.5 MG in Sodium Chloride 0.9% 50 ML IVPB PRN (02:37)
[2019-12-01] MEDS ORDERED: hydrALAZINE 20 MG/ML VIAL SLOW IVP PRN (02:37)
[2019-12-01] MEDS ORDERED: HYDROcodone/Acetaminophen 5/325 mg Tablet PO PRN (02:42)
[2019-12-01] MEDS ORDERED: Acetaminophen 325 MG TAB PO PRN (02:42)
--- NOTE | 2019-12-01 02:42 | PDOC.HHP ---
Hospitalist HPI - History of Present Illness Abdominal pain History of Present Illness: Patient is a 33 year old female with PMH HTN, T2DM, HLD, cholecystectomy, C section x 4 who presents to ED for nausea and vomiting which began today along with severe 10/10 abdominal pain, epigastric and LUQ pain, she threw up 10 times and noticed blood after 4th episode, denies travel or new food ingestion, she has had her gallbladder out a few years ago. In ED, glucose 340, CT performed with no obvious cause of pain identified, patient admitted for abdominal pain and GIB. ED Course: VITAL SIGNS Sat Nov 30, 2019 22:11 JAVED Chaves, Jt BP: 144/83 Pulse: 84 Resp: 18 Temp: 98.7 (Oral) Pain: 10 O2 sat: 96 on (Room Air) Time: 11/30/2019 22:11. Hospitalist ROS - Review of Systems Constitutional: reports: sweats, weakness. denies: fever, chills Eyes: denies: pain, vision change ENT: denies: ear pain, ear discharge, nose pain, nose discharge, nose congestion , mouth pain, mouth swelling, throat pain, throat swelling, other Respiratory: denies: cough, dry, shortness of breath, hemoptysis, SOB with excertion, pleuritic pain, sputum, wheezing, other Cardiovascular: denies: chest pain, palpitations, orthopnea, paroxysmal noc. dyspnea, edema, light headedness, other Gastrointestinal: reports: nausea, vomiting, abdominal pain, other (hematemesis) . denies: diarrhea, constipation, melena, hematochezia Genitourinary: denies: dysuria, frequency, incontinence, hematuria, retention, other Musculoskeletal: denies: neck pain, shoulder pain, arm pain, back pain, hand pain, leg pain, foot pain, other Skin: denies: rash, lesions, basilia, bruising, other Neurological: denies: weakness, numbness, incoordination, change in speech, confusion, seizures, other All other systems reviewed; all pertinent +/- noted in HPI/Subj - Medication Medications: Active Medications Generic Name Dose Route Start Last Admin Trade Name Freq PRN Reason Stop Dose Admin Fentanyl 25 mcg 12/01/19 01:27 12/01/19 01:56 Sublimaze SLOW IVP 25 mcg Q4H PRN Administration Moderate Pain (4-6) Sodium Chloride 1,000 mls @ 125 mls/hr 12/01/19 00:45 12/01/19 01:00 Normal Saline 0.9% IV 12/01/19 10:46 1,000 mls .Q8H RICARDO Administration Hospitalist History - Past Medical History Other Medical History: HTN, T2DM, HLD, cholecystectomy, C section x 4 - Past Surgical History Past Surgical History: reports: Cholecystectomy, - Family History Family History: reports: no pertinent history - Social History Other Social History: Patient denies alcohol use Patient denies drug use Patient currently uses tobacco. - Exam General Appearance: NAD, awake alert Eye: PERRL, anicteric sclera ENT: normocephalic atraumatic, no oropharyngeal lesions, moist mucosa Neck: supple, symmetric, no JVD, no thyromegaly, no lymphadenopathy, no carotid bruit Heart: RRR, no murmur, no gallops, no rubs, normal peripheral pulses Respiratory: CTAB, no wheezes, no rales, no ronchi, normal chest expansion, no tachypnea, normal percussion Gastrointestinal: soft, non-distended, normal bowel sounds, no palpable masses, no hepatomegaly, no splenomegaly, no bruit, tender to palpation (epigastricf and RUQ) Extremities: no cyanosis, no clubbing, no edema Skin: normal turgor, no lesions, no rashes Neurological: cranial nerve grossly intact, normal sensation to touch, no weakness, no focal deficits, no new deficit Musculoskeletal: normal tone, normal strength, no muscle wasting Psychiatric: normal affect, normal behavior, A&O x 3 Hospitalist Results - Labs Result Diagrams: 11/30/19 17:45 11/30/19 17:45 Lab results: WBC 8.7 thou/uL (4.8-10.8) 11/30/19 17:45 Hgb 16.2 g/dL (12.0-16.0) H 11/30/19 17:45 Hct 47.6 % (36.0-47.0) H 11/30/19 17:45 MCV 91.4 fL (78.0-98.0) 11/30/19 17:45 Plt Count 192 thou/uL (130-400) 11/30/19 17:45 Neutrophils % 58.2 % (42.0-75.0) 11/30/19 17:45 Sodium 135 mmol/L (136-145) L 11/30/19 17:45 Potassium 3.2 mmol/L (3.5-5.1) L 11/30/19 17:45 Chloride 97 mmol/L (98-107) L 11/30/19 17:45 Carbon Dioxide 21 mmol/L (22-29) L 11/30/19 17:45 BUN 7 mg/dL (7.0-18.7) 11/30/19 17:45 Creatinine 0.81 mg/dL (0.6-1.1) 11/30/19 17:45 Glucose 340 mg/dL (70-105) H 11/30/19 17:45 Calcium 9.5 mg/dL (7.8-10.44) 11/30/19 17:45 Total Bilirubin 0.6 mg/dL (0.2-1.2) 11/30/19 17:45 AST 19 U/L (5-34) 11/30/19 17:45 ALT 30 U/L (8-55) 11/30/19 17:45 Alkaline Phosphatase 72 U/L (40-110) 11/30/19 17:45 Troponin I Less than 0.010 ng/mL (< 0.028) 11/30/19 17:45 Serum Total Protein 8.3 g/dL (6.0-8.3) 11/30/19 17:45 Albumin 4.2 g/dL (3.5-5.0) 11/30/19 17:45 Lipase 31 U/L (8-78) 11/30/19 17:45 Urine Ketones 20 mg/dL (Negative) A 11/30/19 19:03 Urine Blood Negative (Negative) 11/30/19 19:03 Urine Nitrite Negative (Negative) 11/30/19 19:03 Ur Leukocyte Esterase Negative Kamar/uL (Negative) 11/30/19 19:03 Urine RBC 0-3 HPF (0-3) 11/30/19 19:03 Urine WBC 7-10 HPF (0-3) A 11/30/19 19:03 Ur Squamous Epith Cells 11-20 HPF (0-3) A 11/30/19 19:03 Urine Bacteria None Seen HPF (None Seen) 11/30/19 19:03 Hospitalist H&P A/P - Plan Plan: # abdominal pain, nausea, vomiting - suspect abhilash michele tear and gastroenteritis, will trend HGB and consult GI in the AM, PRNs ordered for nausea/vomiting, also follow up abdominal us, lipase, final CT read and urine test, IV PPI, IVF # positive UA, UTI - order urine culture, start ceftriaxone # DM - SSI
[2019-12-01] MEDS ORDERED: Sodium Chloride 0.9% (PF) 10 ML VIAL FS PRN (03:03)
[2019-12-01] MEDS ORDERED: HumaLOG 300 UNITS/3 ML VIAL SC PRN (03:06)
[2019-12-01] MEDS ORDERED: Dextrose 5% in Water 1,000 ML IV PRN (03:06)
[2019-12-01] MEDS ORDERED: Dextrose 50% Abboject 50 ML SYRINGE SLOW IVP PRN (03:06)
[2019-12-01] MEDS: cefTRIAXone\\ROCEPHIN 1 GM in Sodium Chloride 0.9% 100 ML IVPB SCH (04:17)
[2019-12-01] MEDS: Morphine 2 MG/ML SYRINGE SLOW IVP PRN ×3 (04:42→11:51)
[2019-12-01 06:04] LABS: #Basophils 0.1 thou/uL (0.0-0.2); #Eosinphils 0.1 thou/uL (0.0-0.7); #Lymphocytes 2.5 thou/uL (1.20-3.40); #Monocytes 0.6 thou/uL (0.11-0.59); #Neutrophils 5.2 thou/uL (1.40-6.50); %Basophils 0.6 % (0.0-1.0); %Eosinophils 1.2 % (0.0-10.0); %Lymphocytes 29.7 % (21.0-51.0); %Monocytes 6.9 % (0.0-10.0); %Neutrophils 61.6 % (42.0-75.0); Hemoglobin 13.7 g/dL (12.0-16.0); Mean Corpuscular HGB CONC 34.8 g/dL (32.0-36.0); Mean Corpuscular Hemoglobin 32.7 pg (27.0-31.0); Mean Corpuscular Volume 94.2 fL (78.0-98.0); Mean Platelet Volume 8.5 fL (7.4-10.4); Platelet Count 154 thou/uL (130-400); RBC Distribution Width 11.9 % (11.5-14.5); Red Blood Cell (RBC) Count 4.19 mill/uL (4.20-5.40); White Blood Cell (WBC) Count 8.5 thou/uL (4.8-10.8)
[2019-12-01 06:26] LABS: ALT (SGPT) 20 U/L (8-55); AST (SGOT) 13 U/L (5-34); Alkaline Phosphatase 49 U/L (40-110); Anion Gap 10 mmol/L (10-20); BUN (Urea Nitrogen) 4 mg/dL (7.0-18.7); Bilirubin, Direct 0.2 mg/dL (0.1-0.3); Bilirubin, Total 0.6 mg/dL (0.2-1.2); Calc. Creatinine Clearance 181 mL/min (70-130); Calcium 7.9 mg/dL (7.8-10.44); Carbon Dioxide 26 mmol/L (22-29); Chloride 107 mmol/L (98-107); Estimated GFR-MDRD Greater than 90; Glucose 191 mg/dL (70-105); Lipase 14 U/L (8-78); Magnesium 1.6 mg/dL (1.6-2.6); Potassium 3.5 mmol/L (3.5-5.1); Protein, Total 5.9 g/dL (6.0-8.3); Sodium 139 mmol/L (136-145)
[2019-12-01] MEDS: Pantoprazole 40 MG VIAL IVP SCH ×2 (07:43→20:56)
[2019-12-01] MEDS: Polyethylene Glycol 3350 17 GM Packet PO SCH (07:55)
--- NOTE | 2019-12-01 08:56 | ULT ---
EXAM: US Gallbladder RUQ PROVIDED CLINICAL HISTORY: Abdominal pain COMPARISON: None FINDINGS: The pancreas is obscured by bowel gas. The IVC appears normal. Liver demonstrates changes compatible with fatty infiltration. No evidence for mass or intrahepatic b iliary ductal dilatation. Common duct is nondilated. The gallbladder is not visualized, compatible with the provided clinical history of prior cholecystec alyssa. The right kidney demonstrates no evidence for hydronephrosis or mass. IMPRESSION: No evidence for an acute process. Hepatic steatosis.
[2019-12-01] MEDS ORDERED: Enoxaparin Sodium 40 MG/0.4 ML SYRINGE SC SCH (09:00)
--- NOTE | 2019-12-01 10:36 | CON ---
DATE OF CONSULTATION: 12/01/2019 REQUESTING PHYSICIAN: Dr. Schmitt. REASON FOR CONSULTATION: Hematemesis. HISTORY OF PRESENT ILLNESS: Rowan Jerome is a 33-year-old woman, who was admitted to the hospital last night with nausea and vomiting. She has a history of diabetes and takes insulin. She also has undergone cholecystectomy and four C sections. She takes only insulin at home. She reports that a couple of nights ago, one of her children was playing with her on the floor and jumping up and down on her stomach. She had some pain, but this resolved with Tylenol, and she did not think much of it. Then, yesterday in the afternoon, she had eaten lunch and had some Red Bull, went to go get a tattoo on her leg. Immediately after getting the tattoo, she had the acute onset of epigastric pain and nausea. She ran to the bathroom and had multiple episodes of clear emesis. She thought it was resolving, but then, it hit again, and she had more episodes of vomiting. One of these episodes, she passed a couple of what looked like red blood clots, which was alarming to her. She had further episodes of emesis, which were more bilious in appearance with no further red blood noted. She presented to the Emergency Department last night. Lab workup is essentially unremarkable with normal LFTs and lipase. Initial hemoglobin was 16.2. With a bit of hydration, it is down but only to 13.7. She has a negative urine test and urinalysis suggestive of UTI. CT and abdominal ultrasound imaging were unremarkable. She has been stable. No further vomiting since arrival. Epigastric pain is only present when she inhales deeply. REVIEW OF SYSTEMS: Full review of systems including constitutional, head, eyes, ears, nose, throat, GI, , cardiovascular, respiratory, musculoskeletal, neurologic systems is negative except as noted in the HPI. PAST MEDICAL HISTORY: Diabetes type 2, hypertension, hyperlipidemia, cholecystectomy, x4. ALLERGIES: FLUCONAZOLE, IMITREX, SUMATRIPTAN, JANUVIA, AND SITAGLIPTIN. OUTPATIENT MEDICATIONS: 1. Lantus 50 units twice daily. 2. NovoLog insulin sliding scale. FAMILY HISTORY: Noncontributory. SOCIAL HISTORY: The patient does smoke. No drug or alcohol use. PHYSICAL EXAMINATION: VITAL SIGNS: Temperature 98.2, pulse 70, blood pressure 101/63, 98% oxygen saturation on room air. GENERAL: A 33-year-old woman, lying in bed comfortably, in no distress. SKIN: No jaundice. No rashes were palpable. EYES: No scleral icterus. Extraocular movements intact. ENT: Mucous membranes moist. No oral lesions. LYMPH: No submandibular or supraclavicular lymphadenopathy. THYROID: Nontender to palpation. HEART: Regular rate and rhythm. LUNGS: Clear to auscultation bilaterally. ABDOMEN: Bowel sounds are present. The abdomen is nondistended and soft. There is tenderness to palpation in the epigastrium and left upper quadrant, but no guarding or rebound tenderness. EXTREMITIES: No peripheral edema. VESSELS: Radial pulses 2+ bilaterally. NEURO: Cranial nerves 2 through 12 intact bilaterally. No focal deficits. LABORATORY STUDIES: Hemoglobin 13.7, WBC 8.5, and platelets 154. Sodium 139, potassium 3.5, BUN only 4, creatinine 0.59, and glucose initially 340, now 191. Lipase normal at 14. LFTs all normal with total bilirubin 0.6, alkaline phosphatase 49, AST 13, ALT 20, and albumin 3.0. Troponin is negative. Urine test is negative. Urine drug screen positive for opiates. Urinalysis shows 7 to 10 wbc's. IMAGING STUDIES: Chest x-ray shows faint density at the left lung base, which was thought to possibly represent no acute process. Abdominal ultrasound shows fatty liver, otherwise normal with no biliary dilation. CT of the abdomen and pelvis is also normal with no acute processes. ASSESSMENT AND PLAN: 1. Hematemesis, single episode yesterday evening. 2. Repeated nausea and vomiting, improved here with antiemetics this morning. 3. Epigastric pain. The patient's presentation seems most consistent with a likely acute viral gastroenteritis, possibly food poisoning. Notably, LFTs and lipase are all normal. This single episode of hematemesis occurred after multiple bouts of retching, and I suspect that it represented a Cierra-Tong tear. Notably, further episodes of emesis were nonbloody afterward. I do think it would be worthwhile to perform EGD to rule out other pathology such as peptic ulcer disease or significant gastritis, evaluate for bleeding source. This does not need to be performed urgently. We will give the patient a clear liquid diet today, continue with pantoprazole 40 mg IV q.12 hours, and plan for diagnostic EGD tomorrow. Thank you for the consultation. Please call anytime with questions or concerns. Job ID: [id number]
[2019-12-01 10:39] LABS: Hemoglobin A1c 10.7 % (4.0-6.0)
--- NOTE | 2019-12-01 14:18 | PDOC.HOSPP ---
- Subjective Encounter Date: 12/01/19 Encounter Time: 12:45 Subjective: pt up in bed complains of pain to her abdomen. - Objective Vital Signs & Weight: Vital Signs (12 hours) Temp Pulse Resp BP Pulse Ox 12/01/19 11:00 97.4 F L 74 16 103/66 98 12/01/19 08:00 98.2 F 70 16 101/63 98 12/01/19 04:36 97.9 F 71 20 116/72 99 Weight Weight 190 lb Result Diagrams: 12/01/19 05:38 12/01/19 05:38 Additional Labs: Accuchecks 12/01/19 12/01/19 11:45 04:47 POC Glucose 171 H 186 H Hospitalist ROS - Review of Systems Respiratory: denies: cough, dry, shortness of breath, hemoptysis, SOB with excertion, pleuritic pain, sputum, wheezing, other Cardiovascular: denies: chest pain, palpitations, orthopnea, paroxysmal noc. dyspnea, edema, light headedness, other Gastrointestinal: reports: abdominal pain Genitourinary: denies: dysuria, frequency, incontinence, hematuria, retention, other Musculoskeletal: denies: neck pain, shoulder pain, arm pain, back pain, hand pain, leg pain, foot pain, other - Medication Medications: Active Medications Generic Name Dose Route Start Last Admin Trade Name Freq PRN Reason Stop Dose Admin Fentanyl 25 mcg 12/01/19 01:27 12/01/19 01:56 Sublimaze SLOW IVP 25 mcg Q4H PRN Administration Moderate Pain (4-6) Ceftriaxone Sodium 1 gm/ 100 mls @ 200 mls/hr 12/01/19 03:00 12/01/19 04:17 Sodium Chloride IVPB 12/07/19 03:29 100 mls Q24HR RICARDO Administration Morphine Sulfate 4 mg 12/01/19 02:37 12/01/19 11:51 Morphine SLOW IVP 4 mg Q4H PRN Administration Breakthrough Pain Ondansetron HCl 4 mg 12/01/19 02:37 12/01/19 07:53 Zofran IVP 4 mg Q6H PRN Administration Nausea/Vomiting, use 1st Pantoprazole Sodium 40 mg 12/01/19 09:00 12/01/19 07:43 Protonix IVP 40 mg Q12HR RICARDO Administration Polyethylene Glycol 17 gm 12/01/19 09:00 12/01/19 07:55 Miralax PO Not Given DAILY RICARDO - Exam Heart: negative: RRR, no murmur, no gallops, no rubs, normal peripheral pulses, irregular, diminshed peripheral pulses, murmur present, II/IV, III/IV Respiratory: negative: CTAB, no wheezes, no rales, no ronchi, normal chest expansion, no tachypnea, normal percussion, rales, rhonchi, tachypneic, wheezes Gastrointestinal: normal bowel sounds Gastrointestinal - other findings: mild pain to epigastric area Hosp A/P (1) Hematemesis Code(s): K92.0 - HEMATEMESIS Status: Acute (2) Diabetes Code(s): E11.9 - TYPE 2 DIABETES MELLITUS WITHOUT COMPLICATIONS Status: Acute (3) HTN (hypertension) Code(s): I10 - ESSENTIAL (PRIMARY) HYPERTENSION Status: Acute (4) Diabetes type 2, uncontrolled Code(s): E11.65 - TYPE 2 DIABETES MELLITUS WITH HYPERGLYCEMIA Status: Chronic (5) Hepatic steatosis Code(s): K76.0 - FATTY (CHANGE OF) LIVER, NOT ELSEWHERE CLASSIFIED Status: Acute - Plan will continue home insulin, will also continue ppi. pt to get EGD in am.
[2019-12-01] MEDS: guaiFENesin/DM ER PO SCH (20:57)
[2019-12-01] MEDS: Sodium Chloride 0.65% Nasal 44 ML BOT EA NARE PRN (21:13)
[2019-12-02] MEDS: Morphine 2 MG/ML SYRINGE SLOW IVP PRN ×3 (01:30→16:10)
[2019-12-02] MEDS: cefTRIAXone\\ROCEPHIN 1 GM in Sodium Chloride 0.9% 100 ML IVPB SCH (03:44)
[2019-12-02] MEDS: Fentanyl 100 MCG/2 ML VIAL SLOW IVP PRN ×2 (04:12→14:38)
[2019-12-02 05:17] LABS: #Eosinphils 0.2 thou/uL (0.0-0.7); #Lymphocytes 2.3 thou/uL (1.20-3.40); #Monocytes 0.6 thou/uL (0.11-0.59); #Neutrophils 3.8 thou/uL (1.40-6.50); %Basophils 0.5 % (0.0-1.0); %Eosinophils 2.3 % (0.0-10.0); %Lymphocytes 33.3 % (21.0-51.0); %Monocytes 8.9 % (0.0-10.0); %Neutrophils 54.9 % (42.0-75.0); Hemoglobin 12.5 g/dL (12.0-16.0); Mean Corpuscular HGB CONC 36.2 g/dL (32.0-36.0); Mean Corpuscular Hemoglobin 34.3 pg (27.0-31.0); Mean Corpuscular Volume 94.9 fL (78.0-98.0); Mean Platelet Volume 7.9 fL (7.4-10.4); Platelet Count 135 thou/uL (130-400); RBC Distribution Width 11.9 % (11.5-14.5); Red Blood Cell (RBC) Count 3.65 mill/uL (4.20-5.40); White Blood Cell (WBC) Count 6.9 thou/uL (4.8-10.8)
[2019-12-02 05:51] LABS: ALT (SGPT) 20 U/L (8-55); AST (SGOT) 12 U/L (5-34); Albumin 2.7 g/dL (3.5-5.0); Alkaline Phosphatase 49 U/L (40-110); Anion Gap 10 mmol/L (10-20); BUN (Urea Nitrogen) 4 mg/dL (7.0-18.7); Bilirubin, Direct 0.2 mg/dL (0.1-0.3); Bilirubin, Total 0.6 mg/dL (0.2-1.2); Calc. Creatinine Clearance 191 mL/min (70-130); Calcium 7.5 mg/dL (7.8-10.44); Carbon Dioxide 22 mmol/L (22-29); Chloride 107 mmol/L (98-107); Estimated GFR-MDRD Greater than 90; Glucose 174 mg/dL (70-105); Magnesium 1.6 mg/dL (1.6-2.6); Potassium 3.4 mmol/L (3.5-5.1); Protein, Total 5.5 g/dL (6.0-8.3); Sodium 136 mmol/L (136-145)
[2019-12-02] MEDS ORDERED: Potassium Chloride 10 MEQ/100 ML PREMIX BAG IVPB SCH (08:00)
[2019-12-02] MEDS: Sodium Chloride 0.65% Nasal 44 ML BOT EA NARE PRN (08:39)
[2019-12-02] MEDS: Polyethylene Glycol 3350 17 GM Packet PO SCH (08:41)
[2019-12-02] MEDS: guaiFENesin/DM ER PO SCH (08:41)
[2019-12-02] MEDS: Pantoprazole 40 MG VIAL IVP SCH (08:42)
[2019-12-02] MEDS ORDERED: Insulin Glargine 10 UNITS in Pre-Filled Syringe 1 EACH SC SCH (09:00)
[2019-12-02] MEDS ORDERED: Lidocaine 1% PF 5 ML VIAL ONE (10:12)
[2019-12-02] MEDS ORDERED: PROPOFOL 200 MG/20 ML VIAL ONE (10:12)
[2019-12-02] MEDS ORDERED: Fentanyl 100 MCG/2 ML VIAL ONE (11:17)
--- NOTE | 2019-12-02 14:15 | PDOC.HOSPP ---
- Subjective Encounter Date: 12/02/19 Encounter Time: 10:40 Subjective: Patient seen and examined. No new complaints. No overnight events - Objective Vital Signs & Weight: Vital Signs (12 hours) Temp Pulse Resp BP Pulse Ox 12/02/19 13:24 97.4 F L 79 16 128/81 99 12/02/19 08:55 98 12/02/19 07:45 98.0 F 79 18 108/69 98 12/02/19 04:00 98.5 F 82 16 124/77 97 Weight Weight 190 lb I&O: 12/01/19 12/02/19 12/03/19 06:59 06:59 06:59 Intake Total 1225 Balance 1225 Result Diagrams: 12/02/19 04:33 12/02/19 04:33 Additional Labs: Accuchecks 12/02/19 12/02/19 12/01/19 13:30 04:36 19:56 POC Glucose 131 H 178 H 283 H 12/01/19 16:39 POC Glucose 277 H Hospitalist ROS - Review of Systems ENT: denies: ear pain, ear discharge, nose pain, nose discharge, nose congestion , mouth pain, mouth swelling, throat pain, throat swelling, other Respiratory: denies: cough, dry, shortness of breath, hemoptysis, SOB with excertion, pleuritic pain, sputum, wheezing, other Cardiovascular: denies: chest pain, palpitations, orthopnea, paroxysmal noc. dyspnea, edema, light headedness, other Gastrointestinal: reports: abdominal pain. denies: nausea, vomiting, diarrhea, constipation, melena, hematochezia, other Genitourinary: denies: dysuria, frequency, incontinence, hematuria, retention, other Musculoskeletal: denies: neck pain, shoulder pain, arm pain, back pain, hand pain, leg pain, foot pain, other - Medication Medications: Active Medications Generic Name Dose Route Start Last Admin Trade Name Freq PRN Reason Stop Dose Admin Hydrocodone Bitart/Acetaminophen 1 tab 12/01/19 02:42 12/01/19 16:12 Eunice 5/325 PO 1 tab Q4H PRN Administration Moderate Pain (4-6) Fentanyl 25 mcg 12/01/19 01:27 12/02/19 04:12 Sublimaze SLOW IVP 25 mcg Q4H PRN Administration Moderate Pain (4-6) Guaifenesin/Dextromethorphan 1 tab 12/01/19 21:00 12/02/19 08:41 Mucinex Dm PO Not Given Q12HR RICARDO Ceftriaxone Sodium 1 gm/ 100 mls @ 200 mls/hr 12/01/19 03:00 12/02/19 03:44 Sodium Chloride IVPB 12/07/19 03:29 100 mls Q24HR RICARDO Administration Insulin Glargine 10 units/ 0.1 mls @ 0 mls/hr 12/02/19 09:00 12/02/19 08:41 Miscellaneous Medication SC Not Given QAM [facility] Insulin Human Lispro 0 units 12/01/19 03:06 12/01/19 17:43 Humalog SC 4 unit .MILD SLIDING SCALE PRN Administration Mild Correctional Scale Morphine Sulfate 4 mg 12/01/19 02:37 12/02/19 08:32 Morphine SLOW IVP 4 mg Q4H PRN Administration Breakthrough Pain Ondansetron HCl 4 mg 12/01/19 02:37 12/01/19 07:53 Zofran IVP 4 mg Q6H PRN Administration Nausea/Vomiting, use 1st Pantoprazole Sodium 40 mg 12/01/19 09:00 12/02/19 08:42 Protonix IVP 40 mg Q12HR RICARDO Administration Polyethylene Glycol 17 gm 12/01/19 09:00 12/02/19 08:41 Miralax PO Not Given DAILY [facility] Sodium Chloride 0.5 ml 12/01/19 19:57 12/02/19 08:39 [place] Nasal [place] 0.65% EA NARE 1 spr TIDPRN PRN Administration Nasal Congestion - Exam General Appearance: NAD, awake alert Eye: PERRL, anicteric sclera ENT: normocephalic atraumatic, no oropharyngeal lesions Neck: supple, symmetric, no JVD Heart: RRR, no murmur, no gallops, no rubs Respiratory: CTAB, no wheezes, no rales, no ronchi Gastrointestinal: soft, non-tender, non-distended, normal bowel sounds Extremities: no cyanosis, no clubbing, no edema Skin: normal turgor, no lesions Neurological: no focal deficits Musculoskeletal: normal tone, normal strength Psychiatric: normal affect, normal behavior Hosp A/P (1) Epigastric pain Code(s): R10.13 - EPIGASTRIC PAIN Status: Acute (2) Asthma Code(s): J45.909 - UNSPECIFIED ASTHMA, UNCOMPLICATED Status: Chronic Qualifiers: Asthma severity: mild Asthma persistence: intermittent Asthma complication type: uncomplicated Qualified Code(s): J45.20 - Mild intermittent asthma, uncomplicated (3) GERD (gastroesophageal reflux disease) Code(s): K21.9 - GASTRO-ESOPHAGEAL REFLUX DISEASE WITHOUT ESOPHAGITIS Status: Chronic (4) HLD (hyperlipidemia) Code(s): E78.5 - HYPERLIPIDEMIA, UNSPECIFIED Status: Chronic (5) HTN (hypertension) Code(s): I10 - ESSENTIAL (PRIMARY) HYPERTENSION Status: Chronic - Plan old records reviewed/req 12/02/19 today EGD and after that will DC to home
--- NOTE | 2019-12-02 14:43 | OP ---
DATE OF PROCEDURE: 12/02/2019 OPERATIONS AGENT SURGEON: None. PROCEDURE PERFORMED: Esophagogastroduodenoscopy with biopsies. INDICATION: 1. Hematemesis, single episode. 2. Nausea and vomiting. 3. Epigastric pain. MEDICATIONS: See Anesthesia record. FINDINGS: After discussion of the risks, benefits, and alternatives of the procedure, informed consent was obtained and witnessed. Pre-endoscopic cardiopulmonary examination was satisfactory. Time-out was performed before sedation was achieved. Sedation was achieved with Anesthesia assistance in the endoscopy unit. A Pentax adult upper endoscope was placed into the oropharynx and passed through the cricopharyngeus under direct visualization. The esophageal mucosa appeared normal throughout with a normal-appearing Z-line. The endoscope was advanced into the stomach. Forward and retroflexed views of the entire gastric mucosa were obtained. There was no evidence of any old blood or active bleeding in the stomach. In the gastric antrum, there was some subtle nodularity and erythema. In the gastric fundus and body, the erythema is more prominent, submucosal, diffuse throughout the stomach. There were no erosions or ulcerations noted. Biopsies were obtained from the gastric antrum and body to rule out H. pylori infection. The endoscope was advanced through the pylorus and into the first and second portions of the duodenum, which were unremarkable. The endoscope was then completely withdrawn and the patient allowed to recover. The patient tolerated the procedure well. There were no immediate postprocedure complications. IMPRESSION: 1. Diffuse nonerosive gastritis, biopsied to rule out Helicobacter pylori. 2. Otherwise normal esophagogastroduodenoscopy. RECOMMENDATIONS: 1. Protonix 40 mg daily. 2. We will follow up pathology results on the gastric biopsies. If H. pylori is present, we will treat with triple therapy and confirm eradication. We will contact her with pathology results on an outpatient basis. 3. Advance diet. GI will sign off. Please call back if needed. Job ID: [id number]
[2019-12-02 16:31] VITALS: BP 127/76; TEMP 98.6
--- NOTE | 2019-12-03 14:51 | DIS ---
DATE OF ADMISSION: 11/30/2019 DATE OF DISCHARGE: 12/02/2019 PRIMARY CARE PHYSICIAN: Tom Reilly MD DISCHARGE DISPOSITION: Home. PRIMARY DISCHARGE DIAGNOSIS: Single episode of hematemesis, status post EGD. SECONDARY DISCHARGE DIAGNOSES: Obesity with BMI 33, macrocytic anemia, hypertriglyceridemia, hypertension, gastroesophageal reflux disease, diabetes type 2, asthma, and fatty liver. PRIMARY PROCEDURE/OPERATION: Upper endoscopy was done by Dr. Pretty, and biopsy was obtained. RADIOLOGICAL INVESTIGATION: Chest x-ray normal. Abdomen and pelvis CT scan showed no acute process. Abdominal ultrasound showed fatty liver. SIGNIFICANT LABORATORY DATA: WBC 6.9, hemoglobin 12.5, and platelet 135. Sodium 136, potassium 3.4, BUN 4, and creatinine 0.56. LFT normal. Urinalysis unremarkable. Urine drug screen negative. DISCHARGE MEDICATIONS: 1. Protonix 40 mg p.o. daily. 2. Metformin 500 mg p.o. b.i.d. 3. Insulin Lantus 50 units subcu b.i.d. 4. NovoLog insulin as per sliding scale. CONTRAINDICATION: None. CODE STATUS: Full code. INPATIENT REGISTERED REPRESENTATIVE: Dr. Pretty, GI doctor was consulted while in hospital. TEST RESULTS PENDING ON DISCHARGE: Pathology report from biopsy. ALLERGIES: FLUCONAZOLE, JANUVIA, AND SUMATRIPTAN. DISCHARGE PLAN: Posthospital, the patient will follow up with primary care physician. HOSPITAL COURSE: A 33-year-old female with above-mentioned medical problem, who was admitted by Dr. Tobias Schmitt. Please see his H and P for further details. The patient presented with nausea and epigastric abdominal pain. The patient had one episode of hematemesis as well and that is why Gastroenterology was consulted and they decided to do upper endoscopy, which was done and biopsy was obtained to rule out H pylori infection. The patient is asymptomatic. While in hospital, she was treated with IV fluid as well as her home medication and Protonix and the patient had significant improvement. The patient was given empiric antibiotic therapy for unknown reason, so we discontinued antibiotic therapy on discharge. The patient will follow up with primary care physician as well as Gastroenterology for followup on pathology report. Overall, the patient is medically stable for discharge. Job ID: [id number]
--- NOTE | 2019-12-09 18:30 | EKG ---
Test Reason : Blood Pressure : / mmHG Vent. Rate : 079 BPM Atrial Rate : 079 BPM P-R Int : 130 ms QRS Dur : 086 ms QT Int : 360 ms P-R-T Axes : 000 045 -06 degrees QTc Int : 412 ms Normal sinus rhythm Normal ECG When compared with ECG of 11-JAN-2019 13:17, T wave amplitude has decreased in Anterior leads Confirmed by NAA BARON, DR. Lea ([id number]) on 12/09/2019 6:30:37 PM Referred By: RAHEEL Confirmed By:DR. Leonora JACOME MD
== END 2019-12-02 16:42 | disposition home or self-care (01) ==
LOC: ERS 17:18 → T4-B 22:56
PROVIDERS: ADMIT Internal Medicine; ATTEND Internal Medicine
PROC: 0DB68ZX Excision of Stomach, Via Natural or Artificial Opening Endoscopic, Diagnostic (ICD-10-PCS; principal; 2019-12-02)
DX: K29.51 Unspecified chronic gastritis with bleeding (principal); B96.81 Helicobacter pylori [H. pylori] as the cause of diseases classified elsewhere; I10 Essential (primary) hypertension; E11.9 Type 2 diabetes mellitus without complications; E78.5 Hyperlipidemia, unspecified; E66.9 Obesity, unspecified; N39.0 Urinary tract infection, site not specified; F17.290 Nicotine dependence, other tobacco product, uncomplicated; Z68.33 Body mass index [BMI] 33.0-33.9, adult; Z79.4 Long term (current) use of insulin; Z79.899 Other long term (current) drug therapy; Z88.8 Allergy status to other drugs, medicaments and biological substances
CPT/HCPCS: 36415; 36416; 71045; 74177; 76705; 80048; 80053; 80076; 80306; 81003; 81015; 81025; 82010; 83036; 83690; 83735; 84484; 85025; 87086; 88305; 88312; 93005; 93010; 96361; 96365; 96366; 96367; 96375; 96376; C9113; G0378; J0696; J1815; J2001; J2270; J2405; J2550; J2704; J3010; J3480; J3490; Q9967

== ENCOUNTER 2019-12-09 06:41 | Emergency (ER) | payer BC ==
[2019-12-09] MEDS ORDERED: Ondansetron PF 4 MG/2 ML Vial ONE ×2 (07:26→09:04)
[2019-12-09] MEDS ORDERED: Lidocaine Viscous Sol 2% 15 ml UD Cup ONE (07:27)
[2019-12-09] MEDS ORDERED: Pantoprazole 40 MG VIAL ONE (07:27)
[2019-12-09] MEDS ORDERED: Mag-Al 1200 mg/1200 mg/30 ML UDCUP ONE (07:27)
[2019-12-09 07:35] LABS: ALT (SGPT) 21 U/L (8-55); AST (SGOT) 17 U/L (5-34); Albumin 3.7 g/dL (3.5-5.0); Alkaline Phosphatase 69 U/L (40-110); Anion Gap 24 mmol/L (10-20); BUN (Urea Nitrogen) 9 mg/dL (7.0-18.7); Bilirubin, Total 0.3 mg/dL (0.2-1.2); Calc. Creatinine Clearance 0 mL/min (70-130); Calcium 9.4 mg/dL (7.8-10.44); Carbon Dioxide 15 mmol/L (22-29); Chloride 97 mmol/L (98-107); Estimated GFR-MDRD Greater than 90; Globulin 4.2 g/dL (2.4-3.5); Glucose 326 mg/dL (70-105); Lipase 49 U/L (8-78); Potassium 3.6 mmol/L (3.5-5.1); Protein, Total 7.9 g/dL (6.0-8.3); Sodium 132 mmol/L (136-145)
[2019-12-09 07:44] LABS: #Basophils 0.1 thou/uL (0.0-0.2); #Eosinphils 0.1 thou/uL (0.0-0.7); #Lymphocytes 2.5 thou/uL (1.20-3.40); #Monocytes 0.5 thou/uL (0.11-0.59); #Neutrophils 3.6 thou/uL (1.40-6.50); %Basophils 0.8 % (0.0-1.0); %Lymphocytes 36.7 % (21.0-51.0); %Monocytes 7.4 % (0.0-10.0); %Neutrophils 53.1 % (42.0-75.0); Hemoglobin 14.4 g/dL (12.0-16.0); Mean Corpuscular HGB CONC 34.9 g/dL (32.0-36.0); Mean Corpuscular Hemoglobin 32.2 pg (27.0-31.0); Mean Corpuscular Volume 92.2 fL (78.0-98.0); Mean Platelet Volume 7.9 fL (7.4-10.4); Platelet Count 188 thou/uL (130-400); RBC Distribution Width 12.1 % (11.5-14.5); Red Blood Cell (RBC) Count 4.47 mill/uL (4.20-5.40); White Blood Cell (WBC) Count 6.8 thou/uL (4.8-10.8)
[2019-12-09 08:07] LABS: Bilirubin Negative (Negative); Blood, Urine Trace (Negative); Clarity Clear (Clear); Glucose, Urine (Dipstick) Greater than 1000 mg/dL (Negative); Leukocyte Negative Leu/uL (Negative); Nitrite Negative (Negative); Protein, Urine (Dipstick) 200 mg/dL (Neg-Trace); Squamous Epithelial 0-3 HPF (0-3); Urobilinogen Normal mg/dL (Less than 2)
[2019-12-09 08:10] LABS: Bacteria/HPF 1+ HPF (None Seen)
[2019-12-09 08:12] LABS: Pregnancy Test - Urine (BHCG) Negative (Negative); Pregu Control Background? CLEAR/WHITE (CLR/WHITE); Pregu Control Bar Appear? YES (CONTROL BAR); Specific Gravity 1.033 (1.002-1.036)
--- NOTE | 2019-12-09 08:39 | CT ---
CT Abdomen Pelvis W Con: 12/09/2019 7:17 AM CLINICAL INFORMATION: Abdominal pain with nausea and vomiting COMPARISON: 11/30/2019 TECHNIQUE: Multiple contiguous axial images were obtained and a CT of the abdomen and pelvis with IV contrast. C oronal and sagittal reformats were performed. FINDINGS: Lower Chest: within normal limits. Abdomen: Liver: Mild diffuse fatty infiltration Bile Ducts: Normal caliber. Gallbladder: Removed Pancreas: within normal limits. Spleen: within normal limits. Adrenals: within normal limits. Kidneys: within normal limits. Pelvis: Reproductive Organs: 3.2 cm left ovarian cyst/follicle. This is unchanged compared to the prior exam. Ureters: within normal limits. Bladder: within normal limits. Peritoneum: No ascites or free air, no fluid collection. Bowel: Normal caliber. Normal appendix. Mesentery and Retroperitoneum: No enlarged mesenteric or retroperitoneal lymph nodes. Vessels: Normal. Abdominal Wall: within normal limits. Bones: Within normal limits IMPRESSION: 1. No evidence of acute intraabdominal or pelvic abnormality. 2. Stable left ovarian cyst/follicle
[2019-12-09] MEDS ORDERED: Metoclopramide HCl 10 MG/2 ML VIAL ONE (09:04)
[2019-12-09] MEDS ORDERED: diphenhydrAMINE 50 MG/ML VIAL ONE (09:13)
[2019-12-09] MEDS ORDERED: Fentanyl 100 MCG/2 ML VIAL ONE (10:52)
[2019-12-09] MEDS ORDERED: Iopamidol-370 76% 500 ML 1 ML ONE (13:11)
== END 2019-12-09 13:10 | disposition home or self-care (01) ==
LOC: ERS 06:41
DX: R10.10 Upper abdominal pain, unspecified (principal); R11.2 Nausea with vomiting, unspecified; I10 Essential (primary) hypertension; E11.9 Type 2 diabetes mellitus without complications; E78.00 Pure hypercholesterolemia, unspecified; E78.5 Hyperlipidemia, unspecified; F17.210 Nicotine dependence, cigarettes, uncomplicated; Z79.899 Other long term (current) drug therapy; Z79.4 Long term (current) use of insulin
CPT/HCPCS: 36415; 74177; 80053; 81003; 81015; 81025; 83690; 83735; 85025; 96361; 96374; 96375; 96376; C9113; J1200; J2405; J2765; J3010; Q9967

== ENCOUNTER 2020-01-13 06:40 | Inpatient (IN) | payer BC ==
[2020-01-13] MEDS ORDERED: Piperacillin/Tazobactam 3.375 GM VIAL ONE (07:15)
[2020-01-13] MEDS ORDERED: Dexamethasone 10 MG/ML VIAL ONE (07:15)
[2020-01-13 07:33] LABS: BHCG - Serum Negative (NEGATIVE); Pregs Control Background? CLEAR/WHITE (CLR/WHITE); Pregs Control Bar Appear? YES (CONTROL BAR)
[2020-01-13 07:39] LABS: ALT (SGPT) 19 U/L (8-55); AST (SGOT) 11 U/L (5-34); Albumin 3.4 g/dL (3.5-5.0); Alkaline Phosphatase 69 U/L (40-110); Anion Gap 10 mmol/L (10-20); BUN (Urea Nitrogen) 12 mg/dL (7.0-18.7); Bilirubin, Total 0.4 mg/dL (0.2-1.2); Calc. Creatinine Clearance 0 mL/min (70-130); Calcium 8.6 mg/dL (7.8-10.44); Carbon Dioxide 26 mmol/L (22-29); Chloride 102 mmol/L (98-107); Estimated GFR-MDRD Greater than 90; Globulin 3.6 g/dL (2.4-3.5); Glucose 276 mg/dL (70-105); Sodium 134 mmol/L (136-145)
[2020-01-13 07:53] LABS: #Eosinphils 0.2 thou/uL (0.0-0.7); #Lymphocytes 1.7 thou/uL (1.20-3.40); %Basophils 0.2 % (0.0-1.0); %Eosinophils 1.5 % (0.0-10.0); %Lymphocytes 13.3 % (21.0-51.0); %Monocytes 7.6 % (0.0-10.0); %Neutrophils 77.4 % (42.0-75.0); Hemoglobin 14.7 g/dL (12.0-16.0); Mean Corpuscular HGB CONC 35.5 g/dL (32.0-36.0); Mean Corpuscular Hemoglobin 34.1 pg (27.0-31.0); Mean Corpuscular Volume 96.1 fL (78.0-98.0); Mean Platelet Volume 8.1 fL (7.4-10.4); Platelet Count 185 thou/uL (130-400); RBC Distribution Width 11.6 % (11.5-14.5); Red Blood Cell (RBC) Count 4.31 mill/uL (4.20-5.40); White Blood Cell (WBC) Count 12.9 thou/uL (4.8-10.8)
--- NOTE | 2020-01-13 08:07 | CT ---
CT OF THE SOFT TISSUES OF THE NECK WITH IV CONTRAST INDICATION: Left tonsillar abscess COMPARISON: None FINDINGS: Aerodigestive tract: There is marked enlargement and heterogeneous, striated enhancement involving t he palatine tonsils consistent with tonsillitis. There are areas of edematous changes involving the henson of the oropharynx and posterior hypopharynx as well as some mild edema involving the left parap haryngeal space. There is a 7 mm hypodensity within the left tonsillar pillar without well-formed wall suspicious for an area of phlegmon. There is edematous changes involving the left posterior late ral wall of the hypopharynx. Aryepiglottic folds and epiglottis appear within normal limits. Parotids/Submandibular/Thyroid glands: Normal. Lymph nodes: There are mildly prominent lymph nodes within the upper neck bilaterally, greatest with in the left level 2A position measuring up to 1.1 cm. These are likely reactive in nature. Lung Apices: There are reticulonodular groundglass opacities within the posterior segment of the rig ht upper lobe on image 95 of series 2 is suspicious for an infectious bronchiolitis. Bones: No acute osseous abnormality. Incidentals: There is ornamentation involving the left nasal ala as well as the lower midline lip as well as the tongue.21 visualized intracranial contents are unremarkable appearing. IMPRESSION: Bilateral palatine tonsillitis with an area of suspected phlegmon within the left palatine tonsil. Th ere is marked wall edema involving the posterior aspect of the oropharynx and hypopharynx. Enlarged lymph nodes of the upper neck are likely reactive. There are reticular nodular groundglass opacities within the posterior segment of the right upper lob e suspicious for an infectious bronchiolitis.
[2020-01-13] MEDS ORDERED: Sodium Chloride 0.9% 1,000 ML IV SCH (09:00)
[2020-01-13] MEDS ORDERED: Ondansetron PF 4 MG/2 ML Vial IVP PRN ×2 (09:00→12:27)
[2020-01-13] MEDS ORDERED: Ondansetron ODT 4 MG TAB SL PRN (09:00)
[2020-01-13] MEDS ORDERED: Acetaminophen 325 MG TAB PO PRN ×2 (09:00→12:27)
[2020-01-13] MEDS ORDERED: Morphine 4 MG/ML VIAL ONE (09:28)
[2020-01-13] MEDS ORDERED: Morphine 2 MG/ML SYRINGE SLOW IVP PRN (10:26)
[2020-01-13 10:37] VITALS: BMI 33.9
[2020-01-13] MEDS ORDERED: Guaifenesin DM 100-10/5 ML UDCUP PO PRN (12:27)
[2020-01-13] MEDS ORDERED: Acetaminophen 650 MG Suppository PR PRN (12:27)
[2020-01-13] MEDS ORDERED: Dextrose 5% in Water 1,000 ML IV PRN (12:27)
[2020-01-13] MEDS ORDERED: Dextrose 50% Abboject 50 ML SYRINGE SLOW IVP PRN (12:27)
--- NOTE | 2020-01-13 13:04 | HP ---
REASON FOR ADMISSION: 1. Acute tonsillitis. 2. Dysphagia. HISTORY OF PRESENTING ILLNESS: The patient gives history of noticing pain in her throat last Monday. On Monday, she developed fever and her throat was swollen more so on the left side beneath the mandible. She could not swallow or drink. She tried doing saltwater gargling, but despite this, she got worse. [facility] went to [facility] yesterday and was given a shot of Rocephin and was prescribed oral antibiotics. This morning, when she woke up, the patient was short of breath and had a feeling of choking which worried her and brought her to the emergency room. The patient has had prior history of pharyngeal abscess 5 years back and states it was not in the tonsil. Currently, she is maintaining airway. She is unable to swallow her saliva. PAST MEDICAL AND SURGICAL HISTORY: 1. Diabetes mellitus type 2 for last 8 years. 2. Hypertension. 3. Dyslipidemia. 4. Cholecystectomy. 5. x4. 6. Myringotomy tubes. CURRENT MEDICATIONS: 1. Lantus 50 units subcu twice daily. 2. NovoLog sliding scale 3 times daily. 3. Metformin 500 mg p.o. twice daily. 4. Protonix 40 mg daily. 5. Zofran p.r.n. ALLERGIES: 1. FLUCONAZOLE. 2. IMITREX. 3. JANUVIA. 4. REGLAN. 5. SUMATRIPTAN. PERSONAL HISTORY: Smokes on social occasions. Does not abuse alcohol or drugs. Lives with her . Has 4 children. FAMILY HISTORY: Father at the age of 62 years. He had history of lung cancer. Mother is living and has history of diabetes and hypertension. REVIEW OF SYSTEMS: CONSTITUTIONAL: Negative for weight loss or gain, ability to conduct usual activities. SKIN: Negative for rash, itching. EYES: Negative for double vision, pain. ENT/MOUTH: Negative for nose bleeding, neck stiffness, pain, tenderness. CARDIOVASCULAR: Negative for palpitations, dyspnea on exertion, orthopnea. RESPIRATORY: Negative for shortness of breath, wheezing, cough, hemoptysis, fever or night sweats. GASTROINTESTINAL: Negative for poor appetite, abdominal pain, heartburn, nausea, vomiting, constipation, or diarrhea. GENITOURINARY: Negative for urgency, frequency, dysuria, nocturia. MUSCULOSKELETAL: Negative for pain, swelling. NEUROLOGIC/PSYCHIATRIC: Negative for anxiety, depression. ALLERGY/IMMUNOLOGIC: Negative for skin rash, bleeding tendency. PHYSICAL EXAMINATION: GENERAL: The patient is a 34-year-old female, who is currently in moderate distress from throat pain and swelling. VITAL SIGNS: Blood pressure 134/88, pulse 96 per minute, respiratory rate 20 per minute, temperature 99 degrees Fahrenheit, saturating 97% on room air. NECK: Supple. No elevated JVD. HEENT: Eyes; extraocular muscles intact. Pupils reacting to light. Oral cavity, mucous membranes are dry. The patient has severely enlarged left tonsil which is visualized. Posterior pharynx visualization was not attempted in view of the patient having severely enlarged tonsil so as to not to compromise airway. CARDIOVASCULAR SYSTEM: S1-S2 heard. Regular rhythm. RESPIRATORY SYSTEM: Air entry 1+ bilateral. Scattered rhonchi plus. No rales or wheezes. ABDOMEN: Soft. Bowel sounds heard. No tenderness, rigidity, or guarding. EXTREMITIES: No peripheral edema or calf tenderness. VASCULAR SYSTEM: Peripheral pulses 1+ bilateral. No ischemic ulcerations or gangrene. CENTRAL NERVOUS SYSTEM: No gross focal deficits noted. The patient is alert, awake, oriented well. PSYCHIATRIC: The patient's mood is euthymic. No hallucinations or delusions. LABORATORY DATA: White count of 12.9, H and H 14 and 41, platelet count 185, MCV is 96 with 77% neutrophils. Electrolytes stable. BUN 12, creatinine 0.6, serum glucose 276. Liver enzymes within normal limits. Albumin is 3.4. Serum test is negative. IMAGING STUDIES: Soft tissue neck CT scan with contrast done shows bilateral palatine tonsillitis with an area of suspected phlegmon within the left palatine tonsil. There is marked wall edema involving the posterior aspect of the oropharynx and hypopharynx. Enlarged lymph nodes of the upper neck due to reactive enlargement. The patient also has reticulonodular ground-glass opacities within the posterior segment of the right upper lobe suspicious for infectious bronchiolitis. CLINICAL IMPRESSION AND PLAN: The patient will be admitted to medical floor for severe hypertrophic tonsillitis which is nearly compromising her airway and the patient not being able to swallow with dysphagia. She is not even able to swallow her saliva at present. Dr. Kevin Fraga has been consulted from ER. We will keep her on Zosyn, n.p.o., IV fluids, steroids, and Motrin to help decrease the inflammation. She will be on basal insulin Lantus 10 units subcu twice daily along with mild coverage until she is n.p.o. If her fingerstick glucose drops to less than 150, her Lantus will be discontinued. We will continue to closely monitor her on medical floor. She is currently maintaining airway. Job ID: [id number]
[2020-01-13] MEDS ORDERED: Piperacillin/Tazobactam 3.375 GM in Sodium Chloride 0.9% 100 ML IVPB SCH (13:15)
[2020-01-13] MEDS: Sodium Chloride 0.9% 1,000 ML IV SCH ×2 (13:22→22:01)
[2020-01-13] MEDS: Ibuprofen 100 MG/5 ML UDCUP PO SCH ×2 (13:29→21:57)
[2020-01-13] MEDS: methylPREDNISolone Sod Succ 40 MG VIAL IVP SCH ×2 (13:31→21:57)
[2020-01-13] MEDS: HumaLOG 300 UNITS/3 ML VIAL SC PRN ×3 (13:37→20:34)
[2020-01-13] MEDS ORDERED: Iopamidol-370 76% 500 ML 1 ML ONE (14:32)
[2020-01-13] MEDS: Morphine 2 MG/ML SYRINGE SLOW IVP PRN ×3 (15:38→23:33)
[2020-01-13] MEDS ORDERED: Acetaminophen 650 MG/20.3 ML UDCUP PO PRN (16:40)
[2020-01-13] MEDS: Acetaminophen 325 MG/10.15 ML UDCUP PO PRN ×2 (16:47→22:04)
[2020-01-13] MEDS: Piperacillin/Tazobactam 3.375 GM in Sodium Chloride 0.9% 100 ML IVPB SCH ×2 (18:06→23:32)
[2020-01-13] MEDS: Famotidine/PF 20 mg/2ml Vial SLOW IVP SCH (20:33)
[2020-01-13] MEDS ORDERED: Insulin Glargine 10 UNITS in Pre-Filled Syringe 1 EACH SC SCH (21:00)
[2020-01-14] MEDS: Piperacillin/Tazobactam 3.375 GM in Sodium Chloride 0.9% 100 ML IVPB SCH ×3 (05:23→18:43)
[2020-01-14] MEDS: Morphine 2 MG/ML SYRINGE SLOW IVP PRN ×4 (05:24→21:09)
[2020-01-14] MEDS: Ibuprofen 100 MG/5 ML UDCUP PO SCH ×3 (05:25→21:03)
[2020-01-14] MEDS: methylPREDNISolone Sod Succ 40 MG VIAL IVP SCH ×3 (05:25→21:05)
[2020-01-14] MEDS: HumaLOG 300 UNITS/3 ML VIAL SC PRN ×4 (05:35→21:10)
[2020-01-14 06:11] LABS: #Lymphocytes 0.9 thou/uL (1.20-3.40); #Monocytes 0.5 thou/uL (0.11-0.59); #Neutrophils 8.6 thou/uL (1.40-6.50); %Eosinophils 0.1 % (0.0-10.0); %Lymphocytes 9.2 % (21.0-51.0); %Monocytes 4.5 % (0.0-10.0); %Neutrophils 86.2 % (42.0-75.0); Hemoglobin 13.4 g/dL (12.0-16.0); Mean Corpuscular Hemoglobin 32.8 pg (27.0-31.0); Mean Corpuscular Volume 96.4 fL (78.0-98.0); Platelet Count 205 thou/uL (130-400); RBC Distribution Width 11.4 % (11.5-14.5); Red Blood Cell (RBC) Count 4.09 mill/uL (4.20-5.40)
[2020-01-14 06:30] LABS: Anion Gap 11 mmol/L (10-20); BUN (Urea Nitrogen) 10 mg/dL (7.0-18.7); Calc. Creatinine Clearance 193 mL/min (70-130); Calcium 7.9 mg/dL (7.8-10.44); Carbon Dioxide 22 mmol/L (22-29); Chloride 107 mmol/L (98-107); Estimated GFR-MDRD Greater than 90; Glucose 249 mg/dL (70-105); Potassium 3.4 mmol/L (3.5-5.1); Sodium 137 mmol/L (136-145)
[2020-01-14] MEDS: Famotidine/PF 20 mg/2ml Vial SLOW IVP SCH ×2 (09:38→21:01)
[2020-01-14] MEDS: Enoxaparin Sodium 40 MG/0.4 ML SYRINGE SC SCH (09:39)
[2020-01-14] MEDS ORDERED: Sodium Chloride 0.9% 10 ML ONE (09:48)
[2020-01-14] MEDS: Sodium Chloride 0.9% 1,000 ML IV SCH ×2 (10:14→21:01)
[2020-01-14] MEDS: Insulin Glargine 20 UNITS in Pre-Filled Syringe 1 EACH SC SCH ×2 (10:14→21:02)
--- NOTE | 2020-01-14 11:53 | PDOC.HOSPP ---
- Subjective Encounter Date: 01/14/20 Encounter Time: 10:30 Subjective: throat pain is better is tolerating liq diet, wants to try solid diet no trouble breathing - Objective Vital Signs & Weight: Vital Signs (12 hours) Temp Pulse Resp BP Pulse Ox 01/14/20 11:42 97.5 F L 82 20 107/59 L 96 01/14/20 07:58 98.5 F 81 20 113/68 99 01/14/20 05:24 98.2 F 82 18 116/68 96 Weight Weight 197 lb 8.9 oz I&O: 01/13/20 01/14/20 01/15/20 06:59 06:59 06:59 Intake Total 1888 Output Total 2100 Balance -212 Result Diagrams: 01/14/20 05:48 01/14/20 05:48 Additional Labs: Accuchecks 01/13/20 01/13/20 01/13/20 20:31 17:56 13:25 POC Glucose 409 H 296 H 305 H Hospitalist ROS - Medication Medications: Active Medications Generic Name Dose Route Start Last Admin Trade Name Freq PRN Reason Stop Dose Admin Acetaminophen 650 mg 01/13/20 16:45 01/13/20 22:04 Tylenol Elixir PO 650 mg Q4H PRN Administration Headache/Fever/Mild Pain (1-3) Enoxaparin Sodium 40 mg 01/14/20 09:00 01/14/20 09:39 Lovenox SC 40 mg 0900 RICARDO Administration Famotidine 20 mg 01/13/20 21:00 01/14/20 09:38 Pepcid SLOW IVP 20 mg Q12HR RICARDO Administration Sodium Chloride 1,000 mls @ 100 mls/hr 01/13/20 12:30 01/14/20 10:14 Normal Saline 0.9% IV 1,000 mls .Q10H RICARDO Administration Piperacillin Sod/Tazobactam 100 mls @ 200 mls/hr 01/13/20 18:00 01/14/20 05: 23 Sod 3.375 gm/ Sodium Chloride IVPB 100 mls Q6HR RICARDO Administration Insulin Glargine 20 units/ 0.2 mls @ 0 mls/hr 01/14/20 09:00 01/14/20 10:14 Miscellaneous Medication SC 0.2 mls BID RICARDO Administration Ibuprofen 400 mg 01/13/20 14:00 01/14/20 05:25 Motrin PO 400 mg Q8HR RICARDO Administration Insulin Human Lispro 0 units 01/13/20 12:27 01/14/20 05:35 Humalog SC 3 unit .MILD SLIDING SCALE PRN Administration Mild Correctional Scale Insulin Human Lispro 0 units 01/13/20 12:27 01/13/20 20:34 Humalog SC 5 unit .BEDTIME SLIDING SC PRN Administration Bedtime Correctional Scale Methylprednisolone Sodium Succinate 20 mg 01/13/20 14:00 01/14/20 05:25 Solu-Medrol IVP 20 mg Q8HR RICARDO Administration Morphine Sulfate 2 mg 01/13/20 15:27 01/14/20 09:44 Morphine SLOW IVP 2 mg Q4H PRN Administration Pain Ondansetron HCl 4 mg 01/13/20 12:27 01/14/20 09:45 Zofran IVP 4 mg Q6H PRN Administration Nausea/Vomiting - Exam General Appearance: awake alert Eye: PERRL, anicteric sclera ENT: normocephalic atraumatic, moist mucosa Neck: no JVD Neck - other findings: left lat neck edema and tender Heart: RRR, no murmur Respiratory: no wheezes, no rales Gastrointestinal: soft, non-tender, non-distended, normal bowel sounds Extremities: no cyanosis, no edema Neurological: cranial nerve grossly intact, no focal deficits Psychiatric: normal affect, A&O x 3 Hosp A/P (1) Acute bacterial tonsillitis Code(s): J03.80 - ACUTE TONSILLITIS DUE TO OTHER SPECIFIED ORGANISMS; B96.89 - OTH BACTERIAL AGENTS THE CAUSE OF DISEASES CLASSD [id number] Status: Acute (2) Dysphagia Code(s): R13.10 - DYSPHAGIA, UNSPECIFIED Status: Acute Qualifiers: Dysphagia type: oropharyngeal phase Qualified Code(s): R13.12 - Dysphagia, oropharyngeal phase (3) DM type 2 (diabetes mellitus, type 2) Status: Chronic Qualifiers: Diabetes mellitus care home insulin use: with terminal press operator use (4) HLD (hyperlipidemia) Code(s): E78.5 - HYPERLIPIDEMIA, UNSPECIFIED Status: Chronic (5) Obesity (BMI 30.0-34.9) Code(s): E66.9 - OBESITY, UNSPECIFIED Status: Chronic - Plan hemostable is on zosyn, motrin, morphine prn, oral hygiene increase lantus to 20u bid with coverage will adv diet to solid soft diet or full liq diet likely dc plan in am if she can tolerate oral diet to have outpt f/u with Dr.Steven Fraga
[2020-01-15] MEDS: Piperacillin/Tazobactam 3.375 GM in Sodium Chloride 0.9% 100 ML IVPB SCH ×3 (00:31→12:15)
[2020-01-15] MEDS: Morphine 2 MG/ML SYRINGE SLOW IVP PRN ×4 (00:32→14:15)
[2020-01-15] MEDS: Acetaminophen 325 MG/10.15 ML UDCUP PO PRN (03:14)
[2020-01-15] MEDS: Ibuprofen 100 MG/5 ML UDCUP PO SCH ×2 (05:23→14:16)
[2020-01-15] MEDS: methylPREDNISolone Sod Succ 40 MG VIAL IVP SCH (05:23)
[2020-01-15] MEDS: HumaLOG 300 UNITS/3 ML VIAL SC PRN ×2 (05:33→11:59)
[2020-01-15] MEDS: Sodium Chloride 0.9% 1,000 ML IV SCH ×2 (05:53→15:17)
[2020-01-15] MEDS ORDERED: Famotidine 20 MG TAB PO SCH (09:00)
[2020-01-15] MEDS: Enoxaparin Sodium 40 MG/0.4 ML SYRINGE SC SCH (09:34)
[2020-01-15] MEDS: Insulin Glargine 20 UNITS in Pre-Filled Syringe 1 EACH SC SCH (09:36)
[2020-01-15] MEDS: Famotidine/PF 20 mg/2ml Vial SLOW IVP SCH (09:36)
[2020-01-15] MEDS ORDERED: Acetaminophen 325 MG TAB PO PRN (12:12)
[2020-01-15 15:14] VITALS: BP 161/78; TEMP 98.4
--- NOTE | 2020-01-15 15:29 | DIS ---
DATE OF ADMISSION: 01/13/2020 DATE OF DISCHARGE: 01/15/2020 DISCHARGE DISPOSITION: Home. PRIMARY DISCHARGE DIAGNOSES: 1. Acute bacterial tonsillitis. 2. Dysphagia due to severe tonsillitis. SECONDARY DISCHARGE DIAGNOSES: 1. Diabetes mellitus type 2. 2. Dyslipidemia. 3. Obesity. PROCEDURES DONE DURING HOSPITALIZATION: The patient has had CT soft tissue neck with contrast done showed bilateral palatine tonsillitis with an area of suspected phlegmon within the left palatine tonsil. There is marked wall edema involving posterior aspect of the oropharynx and hypopharynx. Enlarged lymph nodes in the upper neck. H and H 13 and 39, platelet count 205, white count of 12 on admission. BUN 10, creatinine 0.5. Serum test was negative. DISCHARGE MEDICATION: 1. Augmentin 875 mg p.o. twice daily for 8 days. 2. Protonix 40 mg p.o. daily. 3. Metformin 500 mg p.o. twice daily. 4. Lantus 50 units subcu twice daily. 5. NovoLog sliding scale as before. ALLERGIES: ALLERGIC TO FLUCONAZOLE, SITAGLIPTIN, SUMATRIPTAN, AND METOCLOPRAMIDE. DISCHARGE PLAN: The patient to follow up with Dr. Tom Reilly, in [address] Kevin Fraga, ENT specialist in 1 week. BRIEF COURSE DURING HOSPITALIZATION: The patient initially came in to ER with complaints of difficulty swallowing and left lateral neck pain and swelling. She was found to have had severely enlarged tonsils with bilateral tonsillitis. The patient was initially kept n.p.o. and was slowly weaned into liquid diet and solid mashed food prior to discharge. She was placed on steroids along with broad-spectrum IV antibiotics. She has done remarkably well with the above measures. She needs to continue Motrin 400 mg 3 times daily p.r.n. for pain. Dr. Kevin Fraga's PA evaluated the patient here in the hospital and the patient needs to follow up with them in 3 to 4 days. She is otherwise hemodynamically stable and tolerating oral solid diet with no airway compromise. Job ID: [id number]
--- NOTE | 2020-01-17 08:56 | CON ---
DATE OF CONSULTATION: CHIEF COMPLAINT: Odynophagia, dysphagia, and sore throat resulting in inability to take p.o. and hospital admission. HISTORY OF PRESENT ILLNESS: The patient is a 33-year-old female patient with a history of tonsillitis and pharyngitis and presented to the emergency room with severe difficulty with taking p.o., and decreased oral intake and severe pain in the throat and discomfort. The patient had a CT scan evaluated and showed significant tonsillitis and right significant phlegmon with possible early evolving abscesses of the tonsil or peritonsillar and possibly the pharynx and the patient was admitted for IV hydration for pain control and for IV antibiotics and potentially steroids to help reduce the swelling in the airway. PAST MEDICAL HISTORY: The patient has a past medical history of abdominal pain and tonsillitis. PAST SURGICAL HISTORY: The patient describes no surgery of the oral cavity or previous surgery of the tonsils or incision and drainage of previous abscesses. ALLERGIES: THE PATIENT CLAIMS NO ALLERGIES TO ANTIBIOTICS OR OTHER MEDICATIONS. FAMILY AND SOCIAL HISTORY: The patient denies smoking or excessive drinking. REVIEW OF SYSTEMS: MUSCULOSKELETAL: Negative. ENDOCRINOLOGY: Negative. HEMATOLOGIC AND LYMPHATIC: Negative. HEAD, NECK, AND ENT: Negative except otherwise reported in HPI. GASTROINTESTINAL: Negative. NEUROLOGIC: Negative. PHYSICAL EXAMINATION: GENERAL: The patient is alert and oriented x3. EYES: Pupils are equally round and reactive to light. Extraocular movements are intact. No nystagmus on lateral gaze. EARS: Pinnae bilaterally are intact. EAC are clear. No cerumen impaction, and TM is visible. No effusion or infection seen. NOSE: Nasal cavity, mucous membranes are moist. A small allergic stranding and mild turbinate hypertrophy, but no purulent drainage. ORAL CAVITY: Teeth, lips, and tongue are intact with no significant swelling. Floor of mouth is soft. Oropharyngeal exam; bilateral tonsils are red, erythematous, and edematous and taking up a significant portion of the oropharynx with the right greater than left in size. The posterior pharynx is not visible except for a small area superiorly and inferiorly to the tonsil. The base of tongue is soft. Uvula shows no significant deviation and no soft palate deviation. There is no ballotable fluid collection palpable. NECK: Mild lymphadenopathy in level II. No other palpable lymphadenopathy. Trachea is midline. No thyroid masses or lesions. IMAGING DATA: CT scan shows significant tonsillitis bilaterally with right peritonsillar phlegmonous tissue with small hypoechoic areas that possibly show micro fluid collections or phlegmon without clear evidence of current abscess. ASSESSMENT AND PLAN: The patient is a 33-year-old female patient presenting with significant tonsillitis, pharyngitis, odynophagia, dysphagia, inability to take p.o., and inability to tolerate pain. The patient was admitted for IV hydration and for antibiotic management. The patient has had some significant improvement on antibiotics currently. With review of the CT scan and imaging, there is no clear evidence for surgical intervention at this point; however, the patient has had history of several infections in the past that were significant, requiring antibiotics. We would recommend patient be evaluated as an outpatient to consider possible tonsillectomy depending on how many infections and pending patient's improvement on antibiotics in the future. The patient was given information for followup. Thank you for this consult. Please contact the phone number below for any other questions, . Job ID: [id number]
== END 2020-01-15 17:21 | disposition home or self-care (01) | DRG 153 ==
LOC: ERS 06:40 → 3SE 08:58 → 2SE 01-15 10:26
PROVIDERS: ADMIT Internal Medicine; ATTEND Internal Medicine
DX: J03.80 Acute tonsillitis due to other specified organisms (principal); R13.12 Dysphagia, oropharyngeal phase; I10 Essential (primary) hypertension; E78.5 Hyperlipidemia, unspecified; E78.00 Pure hypercholesterolemia, unspecified; E11.9 Type 2 diabetes mellitus without complications; F17.210 Nicotine dependence, cigarettes, uncomplicated; J35.01 Chronic tonsillitis; E66.9 Obesity, unspecified; Z79.4 Long term (current) use of insulin; Z88.8 Allergy status to other drugs, medicaments and biological substances; Z79.899 Other long term (current) drug therapy; Z90.49 Acquired absence of other specified parts of digestive tract; Z68.33 Body mass index [BMI] 33.0-33.9, adult
CPT/HCPCS: 36415; 36416; 70491; 80048; 80053; 83605; 84703; 85025; J1100; J1650; J1815; J2270; J2405; J2543; J2920; J3490; Q9967; S0028

== ENCOUNTER 2020-07-16 11:44 | Emergency (ER) | payer BC ==
[2020-07-16] MEDS ORDERED: Dexamethasone 10 MG/ML VIAL ONE (12:40)
[2020-07-16 12:44] LABS: %Neutrophils 55.3 % (42.0-75.0); Hemoglobin 14.5 g/dL (12.0-16.0); Mean Corpuscular HGB CONC 35.2 g/dL (32.0-36.0); Mean Corpuscular Hemoglobin 33.6 pg (27.0-31.0); Mean Corpuscular Volume 95.6 fL (78.0-98.0); Mean Platelet Volume 8.2 fL (7.4-10.4); Platelet Count 164 thou/uL (130-400); RBC Distribution Width 11.5 % (11.5-14.5); Red Blood Cell (RBC) Count 4.31 mill/uL (4.20-5.40); White Blood Cell (WBC) Count 5.9 thou/uL (4.8-10.8)
[2020-07-16 12:45] LABS: #Eosinphils 0.1 thou/uL (0.0-0.7); #Lymphocytes 2.2 thou/uL (1.20-3.40); #Monocytes 0.3 thou/uL (0.11-0.59); #Neutrophils 3.3 thou/uL (1.40-6.50); %Basophils 0.4 % (0.0-1.0); %Eosinophils 1.7 % (0.0-10.0); %Lymphocytes 37.2 % (21.0-51.0); %Monocytes 5.5 % (0.0-10.0)
--- NOTE | 2020-07-16 13:00 | RAD ---
EXAM: Single view of the chest HISTORY: Chest pain and shortness of breath COMPARISON: 11/30/2019 FINDINGS: Single view of the chest shows a normal sized cardiomediastinal silhouette. There is no rodri dence of consolidation, mass, or pleural effusion. No acute osseous abnormality. IMPRESSION: No evidence of acute cardiopulmonary disease
[2020-07-16 13:02] LABS: ALT (SGPT) 25 U/L (8-55); AST (SGOT) 16 U/L (5-34); Albumin 3.8 g/dL (3.5-5.0); Alkaline Phosphatase 59 U/L (40-110); Anion Gap 13 mmol/L (10-20); BUN (Urea Nitrogen) 13 mg/dL (7.0-18.7); Bilirubin, Total 0.6 mg/dL (0.2-1.2); CK (CPK) 55 U/L (29-168); Calc. Creatinine Clearance 0 mL/min (70-130); Calcium 8.7 mg/dL (7.8-10.44); Carbon Dioxide 22 mmol/L (22-29); Chloride 103 mmol/L (98-107); Estimated GFR-MDRD 86; Globulin 3.1 g/dL (2.4-3.5); Glucose 354 mg/dL (70-105); Potassium 3.7 mmol/L (3.5-5.1); Protein, Total 6.9 g/dL (6.0-8.3); Sodium 134 mmol/L (136-145)
[2020-07-16 13:20] LABS: Bilirubin Negative (Negative); Blood, Urine Negative (Negative); Clarity Clear (Clear); Glucose, Urine (Dipstick) Greater than 1000 mg/dL (Negative); Ketone, Urine Negative (Negative); Leukocyte Negative Leu/uL (Negative); Nitrite Negative (Negative); Protein, Urine (Dipstick) 20 mg/dL (Neg-Trace); Urobilinogen Normal mg/dL (Less than 2); pH, Urine 5.5 (5.0-9.0)
[2020-07-16 13:23] LABS: Specific Gravity, Urine 1.047 (1.002-1.036)
[2020-07-16 13:24] LABS: Pregnancy Test - Urine (BHCG) Negative (Negative); Pregu Control Background? CLEAR/WHITE (CLR/WHITE); Pregu Control Bar Appear? YES (CONTROL BAR); Specific Gravity 1.047 (1.002-1.036)
[2020-07-17 13:53] LABS: SARS-CoV-2 MS2 Positive; SARS-CoV-2 N Gene Negative; SARS-CoV-2 S Gene Negative; SARS-CoV-2 by NAA Not Detected (NotDetected); SARS-CoV-2 orf1ab Negative
== END 2020-07-16 14:00 | disposition home or self-care (01) ==
LOC: ERS 11:44
DX: B34.9 Viral infection, unspecified (principal); Z20.828 Contact with and (suspected) exposure to other viral communicable diseases; R07.89 Other chest pain; E11.9 Type 2 diabetes mellitus without complications; E78.5 Hyperlipidemia, unspecified; E78.00 Pure hypercholesterolemia, unspecified; F17.210 Nicotine dependence, cigarettes, uncomplicated; Z79.4 Long term (current) use of insulin; Z79.899 Other long term (current) drug therapy
CPT/HCPCS: 36415; 71045; 80053; 81003; 81025; 82550; 84484; 85025; 87635; 93005; J1100; U0003

== ENCOUNTER 2020-08-19 06:52 | Emergency (ER) | payer BC, OTHER ==
--- NOTE | 2020-08-19 08:18 | RAD ---
Chest one view HISTORY: Cough and congestion. COMPARISON: 07/16/2020. FINDINGS: Cardiac silhouette and pulmonary vasculature are unremarkable. Mediastinum is midline. No confluent airspace consolidation or evidence of pneumothorax. IMPRESSION : No abnormalities are demonstrated.
[2020-08-19 18:56] LABS: SARS-CoV-2 MS2 Positive; SARS-CoV-2 N Gene Negative; SARS-CoV-2 S Gene Negative; SARS-CoV-2 by NAA Not Detected (NotDetected); SARS-CoV-2 orf1ab Negative
== END 2020-08-19 10:24 | disposition home or self-care (01) ==
LOC: ERS 06:52
DX: B34.9 Viral infection, unspecified (principal)
CPT/HCPCS: 71045; 87635; 93005; U0003

== ENCOUNTER 2021-09-06 11:15 | Emergency (ER) | payer BC ==
[2021-09-06 13:14] LABS: #Basophils 0.1 thou/uL (0.0-0.2); #Eosinphils 0.2 thou/uL (0.0-0.7); #Lymphocytes 2.1 thou/uL (1.20-3.40); #Monocytes 0.7 thou/uL (0.11-0.59); #Neutrophils 5.3 thou/uL (1.40-6.50); %Basophils 0.8 % (0.0-1.0); %Eosinophils 2.5 % (0.0-10.0); %Monocytes 8.2 % (0.0-10.0); %Neutrophils 63.4 % (42.0-75.0); Hemoglobin 14.7 g/dL (12.0-16.0); Mean Corpuscular HGB CONC 36.4 g/dL (32.0-36.0); Mean Corpuscular Hemoglobin 35.1 pg (27.0-31.0); Mean Corpuscular Volume 96.4 fL (78.0-98.0); Mean Platelet Volume 7.5 fL (7.4-10.4); Platelet Count 152 thou/uL (130-400); RBC Distribution Width 11.4 % (11.5-14.5); White Blood Cell (WBC) Count 8.4 thou/uL (4.8-10.8)
[2021-09-06 13:37] LABS: ALT (SGPT) 31 U/L (8-55); AST (SGOT) 21 U/L (5-34); Albumin 3.4 g/dL (3.5-5.0); Alkaline Phosphatase 55 U/L (40-110); Anion Gap 10 mmol/L (10-20); BUN (Urea Nitrogen) 12 mg/dL (7.0-18.7); Bilirubin, Total 0.7 mg/dL (0.2-1.2); Calc. Creatinine Clearance 0 mL/min (70-130); Calcium 8.5 mg/dL (7.8-10.44); Carbon Dioxide 27 mmol/L (22-29); Chloride 101 mmol/L (98-107); Globulin 3.2 g/dL (2.4-3.5); Glucose 258 mg/dL (70-105); Lipase 15 U/L (8-78); Potassium 3.9 mmol/L (3.5-5.1); Protein, Total 6.6 g/dL (6.0-8.3); Sodium 134 mmol/L (136-145)
[2021-09-06] MEDS ORDERED: Ketorolac Tromethamine 30 MG/ML VIAL ONE (14:06)
[2021-09-06] MEDS ORDERED: Dexamethasone 10 MG/ML VIAL ONE (14:08)
[2021-09-06 18:56] LABS: SARS-CoV-2 PCR by NAA Not Detected (NotDetected)
== END 2021-09-06 14:32 | disposition home or self-care (01) ==
LOC: ERS 11:15
DX: B34.9 Viral infection, unspecified (principal); R07.9 Chest pain, unspecified; I10 Essential (primary) hypertension; E11.9 Type 2 diabetes mellitus without complications; E78.5 Hyperlipidemia, unspecified; E78.00 Pure hypercholesterolemia, unspecified; J45.909 Unspecified asthma, uncomplicated; F17.210 Nicotine dependence, cigarettes, uncomplicated; Z20.822 Contact with and (suspected) exposure to COVID-19; Z79.84 Long term (current) use of oral hypoglycemic drugs; Z79.4 Long term (current) use of insulin; Z79.899 Other long term (current) drug therapy
CPT/HCPCS: 36415; 71045; 80053; 83690; 84484; 84702; 85025; 93005; 96372; J1100; J1885; U0003; U0005

== ENCOUNTER 2022-06-16 06:54 | Emergency (ER) | payer BC ==
[2022-06-16 07:44] LABS: BHCG - Serum Negative (NEGATIVE); Pregs Control Background? CLEAR/WHITE (CLR/WHITE); Pregs Control Bar Appear? YES (CONTROL BAR)
[2022-06-16 07:53] LABS: ALT (SGPT) 17 U/L (8-55); AST (SGOT) 15 U/L (5-34); Albumin 3.4 g/dL (3.5-5.0); Alkaline Phosphatase 52 U/L (40-110); Anion Gap 15 mmol/L (10-20); BUN (Urea Nitrogen) 13 mg/dL (7.0-18.7); Bilirubin, Total 0.2 mg/dL (0.2-1.2); Calc. Creatinine Clearance 0 mL/min (70-130); Calcium 8.9 mg/dL (7.8-10.44); Carbon Dioxide 20 mmol/L (22-29); Chloride 99 mmol/L (98-107); Estimated GFR 98; Globulin 3.8 g/dL (2.4-3.5); Glucose 415 mg/dL (70-105); Lipase 26 U/L (8-78); Potassium 4.3 mmol/L (3.5-5.1); Protein, Total 7.2 g/dL (6.0-8.3); Sodium 130 mmol/L (136-145)
[2022-06-16 07:57] LABS: #Eosinphils 0.1 thou/uL (0.0-0.7); #Monocytes 0.5 thou/uL (0.11-0.59); #Neutrophils 4.1 thou/uL (1.40-6.50); %Basophils 0.5 % (0.0-1.0); %Eosinophils 1.6 % (0.0-10.0); %Lymphocytes 30.3 % (21.0-51.0); %Neutrophils 60.6 % (42.0-75.0); Hemoglobin 14.5 g/dL (12.0-16.0); Mean Corpuscular HGB CONC 35.7 g/dL (32.0-36.0); Mean Corpuscular Hemoglobin 34.5 pg (27.0-31.0); Mean Corpuscular Volume 96.8 fL (78.0-98.0); Mean Platelet Volume 8.7 fL (7.4-10.4); Platelet Count 156 thou/uL (130-400); RBC Distribution Width 11.7 % (11.5-14.5); Red Blood Cell (RBC) Count 4.21 mill/uL (4.20-5.40); White Blood Cell (WBC) Count 6.7 thou/uL (4.8-10.8)
[2022-06-16] MEDS ORDERED: Morphine 4 MG/ML VIAL ONE (09:00)
[2022-06-16] MEDS ORDERED: Ondansetron PF 4 MG/2 ML Vial ONE (09:00)
[2022-06-16] MEDS ORDERED: Iopamidol-370 76% 500 ML 1 ML ONE (11:21)
== END 2022-06-16 10:00 | disposition home or self-care (01) ==
LOC: ERS 06:54
DX: R10.84 Generalized abdominal pain (principal); I10 Essential (primary) hypertension; E11.9 Type 2 diabetes mellitus without complications; E78.5 Hyperlipidemia, unspecified; J45.909 Unspecified asthma, uncomplicated; F17.200 Nicotine dependence, unspecified, uncomplicated
CPT/HCPCS: 36415; 74177; 80053; 83690; 84703; 85025; 93005; 96361; 96374; 96375; J2270; J2405; Q9967

== ENCOUNTER 2022-09-30 17:09 | Emergency (ER) | payer BC ==
[2022-09-30] MEDS ORDERED: diphenhydrAMINE 25 MG CAP ONE (17:32)
[2022-09-30] MEDS ORDERED: Dexamethasone 4 MG TAB ONE (17:32)
== END 2022-09-30 18:16 | disposition home or self-care (01) ==
LOC: ERS 17:09
DX: T78.1XXA Other adverse food reactions, not elsewhere classified, initial encounter (principal); E11.9 Type 2 diabetes mellitus without complications; I10 Essential (primary) hypertension; E78.5 Hyperlipidemia, unspecified; F17.290 Nicotine dependence, other tobacco product, uncomplicated; Z76.0 Encounter for issue of repeat prescription
CPT/HCPCS: 99283; J8540

== ENCOUNTER 2023-01-03 09:27 | Emergency (ER) | payer BC ==
[2023-01-03 10:03] LABS: #Eosinphils 0.1 thou/uL (0.0-0.7); #Lymphocytes 2.1 thou/uL (1.20-3.40); #Monocytes 0.4 thou/uL (0.11-0.59); %Basophils 0.8 % (0.0-1.0); %Eosinophils 2.1 % (0.0-10.0); %Lymphocytes 36.8 % (21.0-51.0); %Monocytes 7.6 % (0.0-10.0); %Neutrophils 52.7 % (42.0-75.0); Hemoglobin 14.2 g/dL (12.0-16.0); Mean Corpuscular HGB CONC 35.1 g/dL (32.0-36.0); Mean Corpuscular Hemoglobin 33.9 pg (27.0-31.0); Mean Corpuscular Volume 96.6 fl (78.0-98.0); Mean Platelet Volume 8.3 fL (7.4-10.4); Platelet Count 161 10x3/uL (130-400); RBC Distribution Width 11.2 % (11.5-14.5); Red Blood Cell (RBC) Count 4.19 mill/uL (4.20-5.40); White Blood Cell (WBC) Count 5.6 10x3/uL (4.8-10.8)
[2023-01-03 10:26] LABS: ALT (SGPT) 16 U/L (8-55); AST (SGOT) 16 U/L (5-34); Albumin 3.5 g/dL (3.5-5.0); Alkaline Phosphatase 40 U/L (40-110); Anion Gap 11 mmol/L (10-20); BUN (Urea Nitrogen) 11 mg/dL (7.0-18.7); Bilirubin, Total 0.4 mg/dL (0.2-1.2); Calc. Creatinine Clearance 0 mL/min (70-130); Carbon Dioxide 25 mmol/L (22-29); Chloride 104 mmol/L (98-107); Estimated GFR 117; Globulin 3.6 g/dL (2.4-3.5); Glucose 158 mg/dL (70-105); Lipase 11 U/L (8-78); Potassium 4.2 mmol/L (3.5-5.1); Protein, Total 7.1 g/dL (6.0-8.3); Sodium 136 mmol/L (136-145)
== END 2023-01-03 11:46 | disposition home or self-care (01) ==
LOC: ERS 09:27
DX: R07.9 Chest pain, unspecified (principal); M79.18 Myalgia, other site; I10 Essential (primary) hypertension; E11.9 Type 2 diabetes mellitus without complications; E78.5 Hyperlipidemia, unspecified; F17.290 Nicotine dependence, other tobacco product, uncomplicated
CPT/HCPCS: 36415; 71045; 80053; 83690; 84484; 85025; 93005; 94760

== ENCOUNTER 2023-09-29 22:36 | Emergency (ER) | payer BC | END 2023-09-29 23:47 | disposition home or self-care (01) | LOC: ERS 22:36 | DX: J06.9 Acute upper respiratory infection, unspecified (principal); I10 Essential (primary) hypertension; E11.9 Type 2 diabetes mellitus without complications; F17.290 Nicotine dependence, other tobacco product, uncomplicated | CPT/HCPCS: 71045 ==

== ENCOUNTER 2023-12-29 11:52 | Emergency (ER) | payer BC ==
[2023-12-29] MEDS ORDERED: Ondansetron PF 4 MG/2 ML Vial ONE (12:25)
[2023-12-29] MEDS ORDERED: Acetaminophen 500 MG TAB ONE (12:25)
[2023-12-29 12:53] LABS: #Basophils 0.1 thou/uL (0.0-0.2); #Eosinphils 0.1 thou/uL (0.0-0.7); #Monocytes 0.6 thou/uL (0.11-0.59); #Neutrophils 5.4 thou/uL (1.40-6.50); %Basophils 0.6 % (0.0-1.0); %Eosinophils 0.9 % (0.0-10.0); %Monocytes 6.6 % (0.0-10.0); %Neutrophils 61.6 % (42.0-75.0); Hematocrit 41.3 % (36.0-47.0); Hemoglobin 15.3 g/dL (12.0-16.0); Mean Corpuscular Hemoglobin 35.5 pg (27.0-31.0); Mean Corpuscular Volume 95.8 fl (78.0-98.0); Mean Platelet Volume 9.9 fL (7.4-10.4); Platelet Count 189 10x3/uL (130-400); RBC Distribution Width 11.9 % (11.5-14.5); Red Blood Cell (RBC) Count 4.31 mill/uL (4.20-5.40); White Blood Cell (WBC) Count 8.8 10x3/uL (4.8-10.8)
[2023-12-29 13:00] LABS: Bacteria/HPF None Seen HPF (None Seen); Bilirubin Negative (Negative); Blood, Urine Negative (Negative); CAUTI Indications for Culture Dysuria,urgency,freq; Clarity Clear (Clear); Glucose, Urine (Dipstick) Greater than 1000 mg/dL (Negative); Ketone, Urine Negative (Negative); Leukocyte Negative Leu/uL (Negative); Nitrite Negative (Negative); Protein, Urine (Dipstick) 10 mg/dL (Neg-Trace); RBC/HPF 0-3 HPF (0-3); Urobilinogen Normal mg/dL (Less than 2); WBC/HPF 0-3 HPF (0-3); pH, Urine 5.5 (5.0-9.0)
[2023-12-29 13:04] LABS: Urine Culture Reflex No No
[2023-12-29 13:06] LABS: BHCG - Serum Negative (NEGATIVE); Pregs Control Background? CLEAR/WHITE (CLR/WHITE); Pregs Control Bar Appear? YES (CONTROL BAR)
[2023-12-29 13:23] LABS: ALT (SGPT) 40 U/L (8-55); AST (SGOT) 34 U/L (5-34); Alkaline Phosphatase 57 U/L (40-110); Anion Gap 12 mmol/L (10-20); BUN (Urea Nitrogen) 9 mg/dL (7.0-18.7); Bilirubin, Total 0.5 mg/dL (0.2-1.2); Calc. Creatinine Clearance 0 mL/min (70-130); Calcium 9.5 mg/dL (7.8-10.44); Carbon Dioxide 25 mmol/L (22-29); Chloride 104 mmol/L (98-107); Estimated GFR 112; Globulin 3.7 g/dL (2.4-3.5); Glucose 122 mg/dL (70-105); Lipase 21 U/L (8-78); Magnesium 1.8 mg/dL (1.6-2.6); Potassium 3.6 mmol/L (3.5-5.1); Protein, Total 7.7 g/dL (6.0-8.3); Sodium 137 mmol/L (136-145)
[2023-12-29 13:24] LABS: Troponin I Less than 0.010 ng/mL (< 0.028)
[2023-12-29 13:43] LABS: SARS-CoV-2 NAA Rapid Test Not Detected (NotDetected)
[2023-12-29] MEDS ORDERED: Ketorolac Tromethamine 30 MG (1 mL) VIAL ONE (13:54)
[2023-12-29] MEDS ORDERED: Iopamidol-370 76% 500 ML MDV (1 ML CHARGE) ONE (14:55)
== END 2023-12-29 15:05 | disposition home or self-care (01) ==
LOC: ERS 11:52
DX: R10.9 Unspecified abdominal pain (principal); R07.9 Chest pain, unspecified; R51.9 Headache, unspecified; R11.2 Nausea with vomiting, unspecified; E11.9 Type 2 diabetes mellitus without complications; I10 Essential (primary) hypertension; E78.5 Hyperlipidemia, unspecified; J45.909 Unspecified asthma, uncomplicated; F17.290 Nicotine dependence, other tobacco product, uncomplicated
CPT/HCPCS: 71045; 74177; 80053; 81001; 83690; 83735; 84484; 84703; 85025; 93005; 96361; 96374; 96375; J1885; J2405